=== PATIENT | male | born 1940 | race Caucasian/White ===

== ENCOUNTER → 2023-04-06 10:40 | Outpatient (BNVA) | payer MEDICARE, BC, SELFPAY | PROVIDERS: Visit Provider Nurse Practitioner Gerontology | DX: N41.9 Inflammatory disease of prostate, unspecified (principal); I10 Essential (primary) hypertension | CPT/HCPCS: 99203 ==

== ENCOUNTER → 2023-09-28 09:02 | Outpatient (BNVA) | payer MEDICARE, BC, SELFPAY | PROVIDERS: PCP Family Medicine; Referring Provider Family Medicine; Visit Provider Physician Assistant Surgical | DX: R05.9 Cough, unspecified (principal); R06.2 Wheezing; G47.33 Obstructive sleep apnea (adult) (pediatric); K21.9 Gastro-esophageal reflux disease without esophagitis | CPT/HCPCS: 99215 ==

== ENCOUNTER 2023-10-03 02:59 | Outpatient (CLI) | payer MEDICARE, BC, SELFPAY ==
--- OUTSIDE RECORDS SUMMARY | 2023-10-03 03:01 | XMS_ITS | Patient Health Record ---
Author Name Unknown Organization [facility] Address [address], [place] [id number] Care Team Providers Care Resident Assistant Cna Name Role Phone Sydney Minal Primary Care Provider [phone] Porfirio Aguilar ALLERGIES Allergen (clinical drug ingredient) Drug/Non Drug Allergy documented on EMR Reaction Allergy Type Onset Date Status Ciprofloxacin GI Upset Drug Allergy Act nel meloxicam Meloxicam Nausea and Vomiting Drug Allergy Active oxycodone Oxycodone HCl Nausea and Vomiting Drug Allergy Active penicillin V Penicillin V Potassium Anaphylaxis Drug Allergy Active PredniSONE Mood change Drug Allergy Acti ve escitalopram Escitalopram worsened mood, sexual dysfunction Drug Allergy Active RESULTS Component Value Reference Range Notes BNP BETA NATRIURETIC PEPTIDE Reviewed date:09/25/2023 01:29:29 PM Interpretation: Performing Lab:NL1, [facility]200 [facility] Praveen Estevez M.D. Notes/Report: Received Date: [id number] NON-FASTING B TYPE NATRIURETIC PEPTIDE (BNP) 424 <100 pg/mL BNP levels increase with age in the general population with the highest values seen in individuals greater than 75 years of age. Reference: J. Am. Hakeem. Cardiol. 2002; 40:976-982. NUCLEAR MED Stress Mibi Reviewed date:05/24/2023 07:06:11 AM Interpretation: Performing Lab: Notes/Report: Result: CBC WITH DIFF Reviewed date:04/06/2023 05:16:43 PM Interpretation: Performing Lab:NL1, [facility] [id number] [facility] Praveen Estevez M.D. Notes/Report: Received Date: FASTING: UNKNOWN WHITE BLOOD CELL COUNT 5.1 3.8-10.8 Thousand/ uL RED BLOOD CELL COUNT 4.18 4.20-5.80 Million/uL HEMOGLOBIN 12.0 13.2-17.1 g/dL HEMATOCRIT 36.5 38.5-50.0 % MCV 87.3 80.0-100.0 fL MCH 28.7 27.0-33.0 pg MCHC 32.9 32.0-36.0 g/dL RDW 13.6 11.0-15.0 % PLATELET COUNT 250 140-400 Thousand/uL MPV 10.9 7.5-12.5 fL ABSOLUTE NEUTROPHILS 3024 [phone] cells/uL ABSOLUTE LYMPHOCYTES [phone] cells/uL ABSOLUTE MONOCYTES 449 200-950 cells/uL ABSOLUTE EOSINOPHILS 117 15-500 cells/uL ABSOLUTE BASOPHILS 51 0-200 cells/uL NEUTROPHILS 59.3 LYMPHOCYTES 28.6 MONOCYTES 8.8 EOSINOPHILS 2.3 BASOPHILS 1.0 TSH WITH REFLEX Reviewed date:04/06/2023 05:16:43 PM Interpretation: Performing Lab:NL1, [address] [place], [place] [id number] Praveen Estevez M.D. Notes/Report: Received Date: FASTING: UNKNOWN TSH W/REFLEX TO FT4 2.16 0.40-4.50 mIU/L CMP Reviewed date:04/06/2023 05:16:43 PM Interpretation: Performing Lab:NL1, [address] [place], [place] [id number] Praveen Estevez M.D. Notes/Report: Received Date: FASTING: UNKNOWN GLUCOSE 98 65-99 mg/dL Fasting reference interval UREA NITROGEN (BUN) 18 7-25 mg/dL CREATININE 0.96 0.70-1.22 mg/dL EGFR 80 > OR = 60 mL/min/1.73m2 BUN/CREATININE RATIO SEE NOTE: 6-22 (calc) Not Reported: BUN and Creatinine are within reference range. SODIUM 135 135-146 mmol/L POTASSIUM 4.5 3.5-5.3 mmol/L CHLORIDE 103 98-110 mmol/L CARBON DIOXIDE 24 20-32 mmol/L CALCIUM 9.2 8.6-10.3 mg/dL PROTEIN, TOTAL 6.9 6.1-8.1 g/dL ALBUMIN 4.4 3.6-5.1 g/dL GLOBULIN 2.5 1.9-3.7 g/dL (calc) ALBUMIN/GLOBULIN RATIO 1.8 1.0-2.5 (calc) BILIRUBIN, TOTAL 0.7 0.2-1.2 mg/dL ALKALINE PHOSPHATASE 61 35-144 U/L AST 24 10-35 U/L ALT 22 9-46 U/L URINE CULTURE ROUTINE Reviewed date:11/14/2022 12:58:48 PM Interpretation: Performing Lab:DANELLE, [facility], [address] [place] [address], [id number] Praveen Estevez M.D. Notes/Report: Received Date: FASTING: UNKNOWN CULTURE, URINE, ROUTINE SEE NOTE CULTURE, URINE, ROUTINE Micro Number: [id number] Test Status: Final Specimen Source: Urine Specimen Quality: Adequate Result: Less than 10,000 CFU/mL of single Gram negative organism isolated. No further testing will be performed. If clinically indicated, recollection using a method to minimize contamination, with prompt transfer to Urine Culture Transport Tube, is recommended. URINE DIP IH Reviewed date:11/09/2022 11:23:41 AM Interpretation: Performing Lab: Notes/Report: Microscopic Examination Urine-Color yellow Appearance clear Specific Callender 1.010 pH 7.0 Glucose negative Protein trace Occult Blood negative Bilirubin negative Urobilinogen,Semi-Qn negative Nitrite, Urine negative Ketones negatives Leukocyte esterase negative HCG Urinalysis Gross Exam PSA FREE AND TOTAL Reviewed date:05/25/2023 01:58:00 PM Interpretation: Performing Lab:DANELLE [address] [place], [place] [id number] Praveen Estevez M.D. Notes/Report: Received Date: [id number] NON-FASTING PSA, TOTAL 0.5 < OR = 4.0 ng/mL PSA, FREE 0.2 PSA, % FREE 40 >25 % (calc) PSA(ng/mL) Free PSA(%) Estimated(x) Probability of Cancer(as%) 0-2.5 (*) Approx. 1 2.6-4.0(1) 0-27(2) 24(3) 4.1-10(4) 0-10 56 11-15 28 16-20 20 21-25 16 >or =26 8 >10(+) N/A >50 References:(1)Jareht et al.:Urology 60: 469-474 (2001) (2)Jareth et al.:J.Urol 168: 922-925 (2001) Free PSA(%) Sensitivity(%) Specificity(%) < or = 25 85 19 < or = 30 93 9 (3)Catalona et al.:JEANNETTE 277: 6125-0383 (1996) (4)Catalona et al.:JEANNETTE 279: 0224-3223 (1997) (x)These estimates vary with age, ethnicity, family history and AMIRA results. (*)The diagnostic usefulness of % Free PSA has not been established in patients with total PSA below 2.6 ng/mL (+)In men with PSA above 10 ng/mL, prostate cancer risk is determined by total PSA alone. The Total PSA value from this assay system is standardized against the equimolar PSA standard. The test result will be approximately 20% higher when compared to the WHO-standardized Total PSA (Siemens assay). Comparison of serial PSA results should be interpreted with this fact in mind. PSA was performed using the Jasmyne Clay Immunoassay method. Values obtained from different assay methods cannot be used interchangeably. PSA levels, regardless of value, should not be interpreted as absolute evidence of the presence or absence of disease. REASON FOR REFERRAL Reason FAXED TO [facility] 3.8.20 23 [place] penile pain Please contact our office within [address] [facility] of scheduled appointment Diagnosis 1 Penile pain (N48.89) Referral Organization [facility] David Morales Referring Provider First Name Minal Referring Provider Last Name Sydney Referring Provider Speciality Family Med rufino Referred Provider Osmani Lindo Referred Provider Specialty Urology General Notes Urvashi Thomas 11/09 12:40:30 PM >FAXED TO [facility]. Referral Priority Routine Referral Appointment Date 04/06/2023 Reason FAXED TO [facility] 1.9.20 24 AR evaluate and treat cough, wheeze, SOB. See 09/11/2023 office note Please contact our office within [address] [facility] of scheduled appointment Diagnosis 1 Chronic cough (R05.3 ) Referral Organization [facility] Kenvir Referring Provider First Name Chelsea Referring Provider Last Name Sydney Referring Provider [facility] rufino Referred Provider [facility] Pulmonary, Clin ic Referred Provider Specialty Pulmonary Di seases General Notes Urvashi Thomas 09/12 01:56:24 PM >FAXED TO [facility]. Referral Priority Routine Reason FAXED TO [facility] 1.9.20 24 AR eval and treat Please contact our office within [address] [facility] of scheduled appointment Diagnosis 1 Choking, initial enc ounter (T17.308A) Referral Organization [facility] Referring Provider First Name Chelsea Referring Provider Last Name Sydney Referring Provider [facility] rufino Referred Provider [facility], Specialty Clin ic Referred Provider Specialty Other Medica l Care General Notes Jen Petersen RN 09/11/2023 01:35:29 PM >Please fax to [facility] Speech-Language clinic. Please include today's OV note, Urvashi Thomas 09/12/2023 01:55:27 PM >FAXED TO [facility]. Referral Priority Routine MEDICATIONS Medication SIG (Take, Route, Frequency, Duration) Notes Start Date End Date Status Escitalopram Oxalate 10 MG 1 tablet Orally Once a day for 90 days Not-Taking Olopatadine HCl 0.2 % 1 drop into affect ed eye Ophthalmic Once a day, prn for 30 days 02/02/2023 Not-Taking Benzonatate 100 MG 1 capsule as needed Orally Three times a day for 7 days 07/26/2023 Not-Taking Atorvastatin Calcium 40 MG TAKE ONE TABLET BY MOUTH ONCE DAILY for 90 Active Lisinopril 5 MG TAKE 1 TABLET BY ONUR TH ONE TIME DAILY Orally Once a day for 90 days Active buPROPion HCl ER (SR) 150 MG 1 tablet Orally Twice a day for 90 days Active Triamcinolone Acetonide 0.1 % 1 application Externally Twice a day prn for 30 days 09/07/2022 Active Cialis 10 MG 1 to 2 tablet as nee ded Orally Once a day for 30 days 09/20/2023 Active Nitrostat 0.4 MG as directed Sublingu al prn for 90 days Active Aspirin Adult Low Dose 81 MG 1 tablet Orally Once a day Active Albuterol Sulfate HFA 108 (90 Base) MCG/ACT 2 puff as needed Inhalation every 6 hrs for 30 days 07/06/2023 Active Pantoprazole Sodium 40 MG 1 tablet Orall y Once a day for 30 days 09/11/2023 Active IMMUNIZATIONS Vaccine Route Administration Date Status Comme nts COVID-19 Moderna 35522 Unknown 10/08/2020 Administered Moderna Lot #[id number] exp 08/2021 COVID-19 Moderna 92926 Unknown 11/04/2020 Administered COVID-19 Moderna 72689 IM Intramuscular 06/26/2021 Administered COVID-19 Moderna BIVALENT Age 18 and Older Unknown 05/10/2022 Administered COVID-19 Pfizer IM Intramuscular 12/02/2021 Administered COVID-19 Pfizer BIVALENT Age 12 and older IM Intramuscular 01/06/2023 Administered COVID-19 Pfizer COMIRNATY Age 19 to 64 STATE Supplied IM Intramuscular 05/29/2023 Administered INFLUENZA 18 YRS TO 64 YRS OLD-STATE SUPPLIED Unknown 06/08/2015 Administered INFLUENZA 18 YRS TO 64 YRS OLD-STATE SUPPLIED Unknown 05/06/2016 Administered INFLUENZA 18 YRS TO 64 YRS OLD-STATE SUPPLIED Unknown 05/16/2017 Administered Influenza Adult 65 and Older Fluzone High Dose Purchased IM Intramuscular 05/22/2023 Administered Influenza Adult FluBlok high dose PURCHASED IM Intramuscular 06/01/2020 Administered Influenza Adult FluBlok high dose PURCHASED IM Intramuscular 06/09/2021 Administered Influenza Adult FluBlok high dose PURCHASED IM Intramuscular 05/12/[address] [facility] [id number] Unknown 08/05/2013 Administered Prevnar PCV 13 Adult 65+ Purchased 22917 Unknown 10/15/[address] [facility] 32653 Unknown 06/05/[address] [facility] 12424 Unknown 04/13/[address] [facility] 30060 Unknown 09/05/[address] [facility] 78485 IM Intramuscular 05/22/[address] [facility] 08601 Unknown 04/27/2010 Administered SOCIAL HISTORY Tobacco Use: Social History Observation Description Date Details (start date - stop date) Former Smoker NA - NA Sex Assigned At : Social History Observation Description Sex Assigned At Male OTHER TOBACCO USE: Question Answer Notes Are you an other tobacco user? No SMOKING STATUS: Question Answer Notes Are you a: Former smoker PRAPARE Question Answer Notes Date Completed/Updated: 09/09/21 What is your current housing situation? I have h ousing Are you worried about losing your housing? No What is the highest level of school that you have finished? More than high school What is your current work situation? Oth erwise unemployed but not seeking work (ex. 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 Check all that apply I do not have problems meeting my needs Has lack of transportation k ept you from medical appointments, meetings, work or from getting things needed for daily living? No How often do you see or talk to people that you care about and feel close to? (For example: talking to friends on the phone, visiting friends or family, going to gnosticism or club meetings) More than 5 times a week How stressed are you? Stress is when someone feels tense, nervous, anxious, or can't sleep at night because their mind is troubled A little bit In the past year have you sp ent more than 2 nights in a row in a long-term, custodial, halfway center, or juvenile correctional facility? No Are you a refugee? No What country are you from? [place] Do you feel physically and e motionally safe where you currently live? Yes In the past year, have you b een afraid of your partner or ex-partner? No PRAPARE Score: 3 PROBLEMS Problem Type ICD Code Onset Dates Problem Status W/U Status Risk SNOMED Code Notes Problem Chronic prostatitis (N41.1) Active confirmed 23880077 Problem Depression (F32.9) Active confirmed Depression (144643353) Problem Essential hypertension (I10) Active confirmed 51304742 Problem Obstructive sleep apnea (G47.33) Active confirmed Obstructive s leep apnea (30958205) Problem Osteoarthritis (M19.90) Active confirmed Osteoarthritis (863649766) Problem Psoriasis (L40.9) Active confirmed Psor iasis (5800020) Problem Erectile dysfunction, unspecified erectile dysfunction type (N52.9) Active confirmed 420728238 Problem Hyperlipidemia, unspecified hyperlipidemia type (E78.5) Active confirmed 92092918 Problem Coronary artery disease involving [place] heart, angina presence unspecified, unspecified vessel or lesion type (I25.10) Active confirmed 77434498 Problem H/O acute myocardial infarction (I25.2) Active confirmed 191147925 VITAL SIGNS Heart Rate 67 BPM 09/20/2023 Temperature 97.9 degrees Fahrenheit 09/20/2023 Respiratory Rate 16 /min 07/06/2023 Blood pressure diastolic 78 mmHg 09/20/2023 Oximetry 96 % 09/20/2023 Height 72.5 in 09/20/2023 Blood pressure systolic 128 mmHg 09/20/2023 Weight 232.2 lbs 09/20/2023 BMI 31.06 kg/m2 09/20/2023 PROCEDURES Procedure Date Ordered Date Performed Result Body Sit e PEAK FLOW IH 04/03/2023 04/03/2023 N/A SPIROMETRY 07/06/2023 07/06/2023 N/A GET UP AND GO TEST 05/17/2023 05/17/2023 Passed Encounters Encounter Location Date Provider Diagnosis [address] [id number] 05/15/2023 Minal Grimes [address] [id number] 09/28/2023 Porfirio Aguilar [address] [id number] 11/09/2022 Minal Grimes Penile pain N48.[address] [id number] 12/08/2022 Chelseajarocho Grimes Muscle spasm M62.838 and Upper back pain on left side M54.[address] [id number] 01/06/2023 Chelsea Sydney [address] [id number] 02/02/2023 Chelseajarocho Husseinn Itchy eyes R68.[address] [id number] 04/03/2023 Minal Grimes Coronary artery disease involving [place] heart, angina presence unspecified, unspecified vessel or lesion type I25.10 ; SOB (shortness of breath) R06.02 ; Fatigue, unspecified type R53.83 and Depression F32.[address] [id number] 05/17/2023 Minal Grimes Annual physical exam Z00.00 ; Dietary counseling Z71.3 ; Chronic prostatitis N41.1 ; Hyperlipidemia, unspecified hyperlipidemia type E78.5 ; Coronary artery disease involving [place] heart, angina presence unspecified, unspecified vessel or lesion type I25.10 ; Essential hypertension I10 ; Depression F32.9 and Encounter for immunization Z23 [address] [id number] 07/06/2023 Minal Grimes SK (seborrheic keratosis) L82.1 ; Depression F32.9 and Wheezing R06.[address], [place] [id number] 07/26/2023 Chelseajarocho Husseinn Wheezing R06.2 and Viral URI with cough J06.[address], [place] [id number] 09/11/2023 Minal Grimes Choking, initial encounter T17.308A ; Chronic cough R05.3 and Wheeze R06.[address], [place] [id number] 09/20/2023 Minal Grimes Erectile dysfunction , unspecified erectile dysfunction type N52.9 and Coronary artery disease involving [place] heart, angina presence unspecified, unspecified vessel or lesion type I25.[address], [place] [id number] 10/02/2023 Chelsea Sydney [address], [place] [id number] 11/10/2022 Chelsea Sydney [address], [place] [id number] 11/11/2022 Chelsea Sydney [address], [place] [id number] 02/02/2023 Chelsea Sydney [address], [place] [id number] 04/11/2023 Chelsea Sydney [address], [place] [id number] 07/07/2023 Chelsea Sydney [address], [place] [id number] 07/19/2023 Chelsea Sydney [facility] [address] [facility], [place] [id number] 08/09/2023 Chelsea Sydney Wheezing R06.[address], [place] [id number] 09/01/2023 Chelsea Sydney [facility] [address] [facility], [place] [id number] 09/05/2023 [facility]OS[facility] [address] [facility], [place] [id number] 09/06/2023 Minal Sydney ER Visit ER [facility] [address] [facility], [place] [id number] 09/12/2023 Minal Grimes [facility] [address] [facility], [place] [id number] 09/20[facility]23 [facility] [address] [facility], [place] [id number] 09/22[facility]2023 [facility] [address] [facility], [place] [id number] 10/02/[facility] [address] [facility], [place] [id number] 05/29/2023 Chelsea Sydney [facility] [address] [facility], [place] [id number] 06/19/2023 Minal Grimes [facility] [address] [facility], [place] [id number] 09/28/2023 Minal Grimes ASSESSMENTS Encounter Date Diagnosis Assessment Notes Treatment Notes Treatment Clinical Notes 05/17/2023 Annual physical exam (ICD-10 - Z00.00) 05/17/2023 Dietary counseling (ICD-10 - Z71.3) 04/03/2023 Coronary artery disease involving [place] heart, angina presence unspecified, unspecified vessel or lesion type (ICD-10 - I25.10) 02/02/2023 Itchy eyes (ICD-10 - R68.89) 12/08/2022 Muscle spasm (ICD-10 - M62.838) 12/08/2022 Upper back pain on left side (ICD-10 - M54.9) 11/09/2022 Penile pain (ICD-10 - N48.89) 04/03/2023 SOB (shortness of breath) (ICD-10 - R06.02) 09/11/2023 Choking, initial encounter (ICD-10 - T17.308A) 09/11/2023 Chronic cough (ICD-10 - R05.3) 09/06/2023 ER Visit (ICD9-CM - ER) 09/05/2023 Hospital Admit (ICD9-CM - HOSP) 08/09/2023 Wheezing (ICD-10 - R06.2) 07/26/2023 Wheezing (ICD-10 - R06.2) 07/26/2023 Viral URI with cough (ICD-10 - J06.9) 07/06/2023 Depression (ICD-10 - F32.9) 07/06/2023 SK (seborrheic keratosis) (ICD-10 - L82.1) 09/20/2023 Erectile dysfunction, unspecified erectile dysfunction type (ICD-10 - N52.9) 09/20/2023 Coronary artery disease involving [place] heart, angina presence unspecified, unspecified vessel or lesion type (ICD-10 - I25.10) 09/11/2023 Wheeze (ICD-10 - R06.2) 07/06/2023 Wheezing (ICD-10 - R06.2) 04/03/2023 Fatigue, unspecified type (ICD-10 - R53.83) 05/17/2023 Chronic prostatitis (ICD-10 - N41.1) Venipuncture with 23g from L AC on 1st attempt. Patient tolerated procedure well. Pressure bandage applied. LUPE Delgadillo 05/17/2023 Hyperlipidemia, unspecified hyperlipidemia type (ICD-10 - E78.5) 04/03/2023 Depression (ICD-10 - F32.9) 05/17/2023 Coronary artery disease involving [place] heart, angina presence unspecified, unspecified vessel or lesion type (ICD-10 - I25.10) 05/17/2023 Essential hypertension (ICD-10 - I10) 05/17/2023 Depression (ICD-10 - F32.9) 05/17/2023 Encounter for immunization (ICD-10 - Z23) 11/09/[address] Grimes by Janina Grove, biomedical electronics technician, on 11/09/2022. I, Dr. Grimes, have personally reviewed and agreed with the information entered by the biomedical electronics technician. 12/08/[address] Grimes by Janina Grove, biomedical electronics technician, on 12/08/2022. I, Dr. Grimes, have personally reviewed and agreed with the information entered by the biomedical electronics technician. 02/02/[address] Grimes by Janina Grove biomedical electronics technician, on 02/02/2023. I, Dr. Grimes, have personally reviewed and agreed with the information entered by the biomedical electronics technician. 04/03/[address] Grimes by Janina Grove biomedical electronics technician, on 04/03/2023. IDr. Grimes, have personally reviewed and agreed with the information entered by the biomedical electronics technician. Right hand venipuncture done with 23 g needle. Successful first attempt. Pt tolerated it well.Bandaid applied Lab sent to [facility]. LUPE Funez 05/17/[address] Grimes by Janina Grove biomedical electronics technician, on 05/17/2023. I, Dr. Grimes, have personally reviewed and agreed by the information entered by the biomedical electronics technician. 07/06/[address] Grimes by Janina Grove biomedical electronics technician, on 07/06/2023. I, Dr. Grimes, have personally reviewed and agreed with the information entered by the biomedical electronics technician. 07/26/[address] Grimes by Janina Grove biomedical electronics technician, on 07/26/2023. I, Dr. Grimes, have personally reviewed and agreed with the information entered by the biomedical electronics technician. 09/11/[address] Alex Grimes by Janina Grove biomedical electronics technician, on 09/11/2023. I, Dr. Grimes, have personally reviewed and agreed with the information entered by the biomedical electronics technician. 09/20/2023 Other Scribed for Minal Grimes by Maya Case Virtual scribe on 09/20/2023. Minal Joyce, have personally reviewed and agreed with the information entered by the Virtual scribe. Left ac venipuncture done with 23 g needle. Successful first attempt. Pt tolerated it well. Lab sent to [facility]. LUPE Funez PLAN OF TREATMENT No Information Insurance Providers Payer Name Payer Address Payer Phone Subscriber Number Group Number Insured Name Patient Relationship to Insured Coverage Start Date Coverage End Date MEDICARE FQHC [address] [place] [phone] [id number] Sara Arnold Self - patient is the insured [employer] [place] OUT OF AREA [address] [place] [address] [id number] Sara Arnold Self - patient is the insured 0 MEDICAL (GENERAL) HISTORY Medical History History ICD Code Osteoarthritis bilateral knees and spine Hx of NSTEMI- RCA stent placed, Cardiolo gist Dr. Zamora @ [facility] h/o Aortic aneurysm, resolved per patien t ED h/o chronic Prostatitis Former smoker, quit age 61 h/o Genital HSV Psoriasis h/o Iron deficiency anemia Obstructive Sleep apnea- uses CPAP Depression HTN HLD Nuclear stress test 05/18/20 23: large inferior scar, EF 47%, unchanged since 2019, no abnormal perfusion spirometry on 07/06/2023 norm al but positive response to albuterol. Using albuterol prn with no definite pulmonary diagnosis. Surgical History Surgery Date(Month/Year) APD- Right Total Knee Replacement Dr Elkin forbes 11/29/17 Right Cataract 12/01/11 Right Medial buttock lipoma excision Dr Hoffman 10/2006 STEMI- RCA Stent 04/26/16 Left Cataract 2014 left and right carpal tunnel release 201 9 revision of carpal tunnel 02/2020 Hospitalization History Reason Date(Month/Year) ehrlichiosis 11/2017 For surgeries above
[2023-10-03] MEDS: Levalbuterol HFA 15 GM INH 4 PUFF IH (11:27)
[2023-10-03] MEDS: Inhaler, Assist Device 1 EACH MC (11:28)
--- NOTE | 2023-10-03 12:42 | W.PFT ---
Date of service: 10/03/23 Time of Service: 10:01 Pulmonary Function Test Result Indications: Dyspnea Interpretation Spirometry: There is no airflow limitation. No bronchodilator response. 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 Clinical Correlation therefore is recommended.
== END 2023-10-03 03:00 | disposition home or self-care (01) ==
LOC: RT 02:59
PROVIDERS: PCP Family Medicine; Visit Provider Physician Assistant Surgical
DX: R05.9 Cough, unspecified (principal); J84.9 Interstitial pulmonary disease, unspecified
CPT/HCPCS: 94060; 94726; 94729

== ENCOUNTER → 2023-10-06 01:15 | Outpatient (CLI) | payer MEDICARE, BC, SELFPAY ==
--- OUTSIDE RECORDS SUMMARY | 2023-10-06 01:17 | XMS_ITS | Patient Health Record ---
Author Name Unknown Organization [facility] Address [address], [place] [id number] Care Team Providers Care Sales Representative [employer] Name Role Phone Sydney Minal Primary Care Provider Porfirio Aguilar [phone] ALLERGIES Allergen (clinical drug ingredient) Drug/Non Drug [...] Reviewed date:09/25/2023 01:29:29 PM Interpretation: Performing Lab:NL1, [facility] [place], [place] [id number] Praveen Estevez M.D. Notes/Report: Received Date: [id number] NON-FASTING B TYPE NATRIURETIC PEPTIDE (BNP) 424 <100 pg/mL BNP levels increase with age in the general population with the highest values seen in individuals greater than 75 years of age. Reference: J. Am. Hakeem. Cardiol. 2002; 40:976-982. PSA FREE AND TOTAL Reviewed date:05/25/2023 01:58:00 PM Interpretation: Performing Lab:NL1, [facility] [phone] Praveen Estevez M.D. Notes/Report: Received Date: [id number] NON-FASTING PSA, TOTAL 0.5 < OR = 4.0 ng/mL PSA, FREE 0.2 PSA, % FREE 40 >25 % (calc) PSA(ng/mL) Free PSA(%) Estimated(x) Probability of Cancer(as%) 0-2.5 (*) Approx. 1 2.6-4.0(1) 0-27(2) 24(3) 4.1-10(4) 0-10 56 11-15 28 16-20 20 21-25 16 >or =26 8 >10(+) N/A >50 References:(1)Jareth et al.:Urology 60: 469-474 (2001) (2)Jareth et al.:J.Urol 168: 922-925 (2001) Free PSA(%) Sensitivity(%) Specificity(%) < or = 25 85 19 < or = 30 93 9 (3)Catalona et al.:JEANNETTE 277: 3842-3425 (1996) (4)Catalona et al.:JEANNETTE 279: 5311-1790 (1997) (x)These estimates vary with age, ethnicity, [...] of the presence or absence of disease. NUCLEAR MED Stress Mibi Reviewed date:05/24/2023 07:06:11 AM Interpretation: Performing Lab: Notes/Report: Result: CBC WITH DIFF Reviewed date:04/06/2023 05:16:43 PM Interpretation: Performing Lab:NL1, [facility] [id number] [place], [place] [id number] Praveen Estevez M.D. Notes/Report: Received Date: FASTING: UNKNOWN WHITE BLOOD CELL COUNT 5.1 3.8-10.8 Thousand/ uL RED BLOOD CELL COUNT 4.18 4.20-5.80 Million/uL HEMOGLOBIN 12.0 13.2-17.1 g/dL HEMATOCRIT 36.5 38.5-50.0 % MCV 87.3 80.0-100.0 fL MCH 28.7 27.0-33.0 pg MCHC 32.9 32.0-36.0 g/dL RDW 13.6 11.0-15.0 % PLATELET COUNT 250 140-400 Thousand/uL MPV 10.9 7.5-12.5 fL ABSOLUTE NEUTROPHILS 3024 2324-4728 cells/uL ABSOLUTE LYMPHOCYTES 1569 239-3162 cells/uL ABSOLUTE MONOCYTES 449 200-950 cells/uL ABSOLUTE EOSINOPHILS 117 15-500 cells/uL ABSOLUTE BASOPHILS 51 0-200 cells/uL NEUTROPHILS 59.3 LYMPHOCYTES 28.6 MONOCYTES 8.8 EOSINOPHILS 2.3 BASOPHILS 1.0 TSH WITH REFLEX Reviewed date:04/06/2023 05:16:43 PM Interpretation: Performing Lab:NL1, [facility] [place], [place] [id number] Praveen Estevez M.D. Notes/Report: Received Date: FASTING: UNKNOWN TSH W/REFLEX TO FT4 2.16 0.40-4.50 mIU/L CMP Reviewed date:04/06/2023 05:16:43 PM Interpretation: Performing Lab:[facility] [address] Praveen Estevez M.D. Notes/Report: Received Date: FASTING: [...] ROUTINE Reviewed date:11/14/2022 12:58:48 PM Interpretation: Performing Lab:NL1, [facility], [address] [place] [address], [phone] Praveen Estevez M.D. Notes/Report: Received Date: FASTING: UNKNOWN CULTURE, URINE, ROUTINE SEE NOTE CULTURE, URINE, ROUTINE Micro Number: [id number] Test Status: Final Specimen Source: Urine Specimen [...] Microscopic Examination Urine-Color yellow Appearance clear Specific [place] 1.010 pH 7.0 Glucose negative Protein trace Occult Blood negative Bilirubin negative Urobilinogen,Semi-Qn negative Nitrite, Urine negative Ketones negatives Leukocyte esterase negative HCG Urinalysis Gross Exam REASON FOR REFERRAL Reason FAXED TO [facility] 3.8.20 23 AR penile pain Please contact our office within [address] to [address] [facility] of scheduled appointment Diagnosis 1 Penile pain (N48.89) Referral Organization [facility] David Morales Referring Provider First Name Minal Referring Provider Last Name Sydney Referring Provider Speciality Family Med rufino Referred Provider Osmani Lindo Referred Provider Specialty Urology General Notes Urvashi Thomas 11/09 12:40:30 PM >FAXED TO [facility]. Referral Priority Routine Referral Appointment Date 04/06/2023 Reason FAXED TO [facility] 1.9.20 24 AR evaluate and treat cough, wheeze, SOB. See 09/11/2023 office note Please contact our office within [address] [facility] of scheduled appointment Diagnosis 1 Chronic cough (R05.3 ) Referral Organization [facility] Referring Provider First Name [place] Referring Provider Last Name [facility] Referring Provider [facility] Referred Provider [facility] Pulmonary, Clin ic Referred Provider Specialty Pulmonary Meeta moratayaes General Notes Urvashi Thomas 09/12 01:56:24 PM >FAXED TO [facility]. Referral Priority Routine Reason FAXED TO [facility] 19 AR eval and treat Please contact our office within 7 days to notify [facility] of scheduled appointment Diagnosis 1 Choking, initial enc ounter (T17.308A) Referral Organization [facility] Referring Provider First Name [place] Referring Provider Last Name [facility] Referring Provider [facility] Referred Provider [facility], Specialty Clin ic Referred Provider Specialty Other Medica l [facility] General Notes Nicola ANDRADE, Jen 09/11/2023 01:35:29 PM >Please fax to [facility] Speech-Language clinic. Please include today's OV note, Urvashi Thomas 09/12/2023 01:55:27 PM >FAXED TO [facility]. Referral Priority Routine Reason *10/04/23 LP. eval a nd treat Please contact our office within [address] [facility] of scheduled appointment Diagnosis 1 Coronary artery dise ase involving [place] heart, angina presence unspecified, unspecified vessel or lesion type (I25.10) Diagnosis 2 H/O acute myocardial infarction (I25.2) Diagnosis 3 Essential hypertensi on (I10) Referral Organization [facility] Referring Provider First Name [place] Referring Provider Last Name Sydney Referring Provider [facility] Referred Provider [facility], Cardiology Referred Provider Specialty Cardiology Referral Priority Routine MEDICATIONS Medication SIG (Take, Route, Frequency, Duration) Notes Start Date End Date Status Nitrostat 0.4 MG as directed Sublingu al prn for 90 days Active Triamcinolone Acetonide 0.1 % 1 application Externally Twice a day prn for 30 days 09/07/2022 Active buPROPion HCl ER (SR) 150 MG 1 tablet Orally Twice a day for 90 days Active Lisinopril 5 MG TAKE 1 TABLET BY ONUR TH ONE TIME DAILY Orally Once a day for 90 days Active Atorvastatin Calcium 40 MG TAKE ONE TABLET BY MOUTH ONCE DAILY for 90 Active Cialis 10 MG 1 to 2 tablet as nee ded Orally Once a day for 30 days 09/20/2023 Active Benzonatate 100 MG 1 capsule as needed Orally Three times a day for 7 days 07/26/2023 Not-Taking Pantoprazole Sodium 40 MG 1 tablet Orall y Twice a day for 30 days 09/11/2023 Active Olopatadine HCl 0.2 % 1 drop into affect ed eye Ophthalmic Once a day, prn for 30 days 02/02/2023 Not-Taking Escitalopram Oxalate 10 MG 1 tablet Orally Once a day for 90 days Not-Taking Albuterol Sulfate HFA 108 (90 Base) MCG/ACT 2 puff as needed Inhalation every 6 hrs for 30 days 07/06/2023 Active Aspirin Adult Low Dose 81 MG 1 tablet Orally Once a day Active IMMUNIZATIONS Vaccine Route Administration Date Status Comme nts Zostavax [facility] [id number] Unknown 04/27/[address] [facility] [id number] Unknown 04/13/[address] [facility] [id number] Unknown 09/05/[address] [facility] [id number] IM Intramuscular 05/22/[address] [facility] [id number] Unknown 06/05/2020 Administered Prevnar PCV 13 Adult 65+ Purchased [id number] Unknown 10/15/[address] [facility] [id number] Unknown 08/05/2013 Administered Influenza Adult FluBlok high dose PURCHASED IM Intramuscular 06/01/2020 Administered Influenza Adult FluBlok high dose PURCHASED IM Intramuscular 06/09/2021 Administered Influenza Adult FluBlok high dose PURCHASED IM Intramuscular 05/12/2022 Administered Influenza Adult 65 and Older Fluzone High Dose Purchased IM Intramuscular 05/22/2023 Administered INFLUENZA 18 YRS TO 64 YRS OLD-STATE SUPPLIED Unknown 06/08/2015 Administered INFLUENZA 18 YRS TO 64 YRS OLD-STATE SUPPLIED Unknown 05/06/2016 Administered INFLUENZA 18 YRS TO 64 YRS OLD-STATE SUPPLIED Unknown 05/16/2017 Administered COVID-19 Pfizer COMIRNATY Age 19 to 64 STATE Supplied IM Intramuscular 05/29/2023 Administered COVID-19 Pfizer BIVALENT Age 12 and older IM Intramuscular 01/06/2023 Administered COVID-19 Pfizer IM Intramuscular 12/02/2021 Administered COVID-19 Moderna BIVALENT Age 18 and Older Unknown 05/10/2022 Administered COVID-19 Moderna [id number] Unknown 10/08/2020 Administered Moderna Lot #[id number] exp 08/2021 COVID-19 Moderna [id number] Unknown 11/04/2020 Administered COVID-19 Moderna [id number] IM Intramuscular 06/26/2021 Administered SOCIAL HISTORY Tobacco Use: Social History [...] 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 Stress is when someone feels tense, nervous, anxious, or can't sleep at night because their mind is troubled A little bit In the past year have you sp ent more than 2 nights in a row in a fci, half-way, group home center, or juvenile correctional facility? No Are [...] Notes Problem Chronic prostatitis (N41.1) Active confirmed 81421585 Problem Depression (F32.9) Active confirmed Depression (017677326) Problem Essential hypertension (I10) Active confirmed 69928612 Problem Obstructive sleep apnea (G47.33) Active confirmed Obstructive s leep apnea (97967630) Problem Osteoarthritis (M19.90) Active confirmed Osteoarthritis (906874406) Problem Psoriasis (L40.9) Active confirmed Psor iasis (3292964) Problem Erectile dysfunction, unspecified erectile dysfunction type (N52.9) Active confirmed 615315785 Problem Hyperlipidemia, unspecified hyperlipidemia type (E78.5) Active confirmed 93275323 Problem Coronary artery disease involving [place] heart, angina presence unspecified, unspecified vessel or lesion type (I25.10) Active confirmed 61502882 Problem H/O acute myocardial infarction (I25.2) Active confirmed 001064803 VITAL SIGNS Heart Rate 55 BPM 10/04/2023 Temperature 98.0 degrees Fahrenheit 10/04/2023 Respiratory Rate 16 /min 07/06/2023 Oximetry 99 % 10/04/2023 Blood pressure diastolic 88 mmHg 10/04/2023 Height 72.5 in 10/04/2023 Blood pressure systolic 138 mmHg 10/04/2023 Weight 236.6 lbs 10/04/2023 BMI 31.64 kg/m2 10/04/2023 PROCEDURES Procedure Date Ordered Date Performed Result Body Sit e PEAK FLOW IH 04/03/2023 04/03/2023 N/A SPIROMETRY 07/06/2023 07/06/2023 N/A GET UP AND GO TEST 05/17/2023 05/17/2023 Passed Encounters Encounter Location Date Provider Diagnosis [address] [id number] 05/15/2023 [place] [address] [id number] 09/28/2023 Porfirio Aguilar [address] [id number] 10/04/2023 [place] Grimes SOB (shortness of breath) R06.02 ; Chronic cough R05.3 and Coronary artery disease involving [place] heart, angina presence unspecified, unspecified vessel or lesion type I25.[address] [id number] 11/09/2022 Minal Grimes Penile pain N48.[address] [id number] 12/08/2022 Minal Grimes Muscle spasm M62.838 and Upper back pain on left side M54.[address] [id number] 01/06/2023 [place] [address] [id number] 02/02/2023 Minal Grimes Itchy eyes R68.[address] [id number] 04/03/2023 Minal Grimes Coronary artery disease involving [place] heart, angina presence unspecified, unspecified vessel or lesion type I25.10 ; SOB (shortness of breath) R06.02 ; Fatigue, unspecified type R53.83 and Depression F32.[address] [id number] 05/17/2023 Minal Grimes Annual physical exam Z00.00 ; Dietary counseling Z71.3 ; Chronic prostatitis N41.1 ; Hyperlipidemia, unspecified hyperlipidemia type E78.5 ; Coronary artery disease involving [place] heart, angina presence unspecified, unspecified vessel or lesion type I25.10 ; Essential hypertension I10 ; Depression F32.9 and Encounter for immunization Z23 [address] [id number] 07/06/2023 Minal Grimes SK (seborrheic keratosis) L82.1 ; Depression F32.9 and Wheezing R06.[address] [id number] 07/26/2023 Minal Grimes Wheezing R06.2 and Viral URI with cough J06.[address] [id number] 09/11/2023 Minal Grimes Choking, initial encounter T17.308A ; Chronic cough R05.3 and Wheeze R06.[address] [id number] 09/20/2023 Minal Grimes Erectile dysfunction , unspecified erectile dysfunction type N52.9 and Coronary artery disease involving [place] heart, angina presence unspecified, unspecified vessel or lesion type I25.[address] [id number] 11/10/2022 Minal Grimes [address] [id number] 11/11/2022 Minal Grimes [address] [place], [place] [id number] 02/02/[address] [facility] [place] [address] [facility], [place] [id number] 04/11/[address] [facility] [place] [address] [facility], [place] [id number] 07/07/[address] [facility] [place] [address] [facility], [place] [id number] 07/19/[address] [facility] [place] [address] [facility], [place] [id number] 08/09/2023 Minal Grimes Wheezing R06.2 [facility] [place] [address] [facility], [place] [id number] 09/01/[address] [facility] [place] [address] [facility], [place] [id number] 09/05/2023 [facility] Admit [facility]OSP [facility] [place] [address] [facility], [place] [id number] 09/06/2023 Minal Grimes ER Visit ER [facility] [place] [address] [facility], [place] [id number] 09/12/[address] [facility] [place] [address] [facility], [place] [id number] 09/20/[address] [facility] [place] [address] [facility], [place] [id number] 09/22/[address] [facility] [place] [address] [facility], [place] [id number] 10/02[facility] [place] [id number] 05/29/[address] [facility] [place] [address] [facility], [place] [id number] 06/19/[address] [facility] [place] [address] [facility], [place] [id number] 09/28/2023 [facility] [address] [facility] [place] [id number] 10/02/2023 Minal Grimes Coronary artery disease involving [place] heart, angina presence unspecified, unspecified vessel or lesion type I25.10 ; H/O acute myocardial infarction I25.2 and Essential hypertension I10 ASSESSMENTS Encounter Date Diagnosis Assessment Notes Treatment Notes Treatment Clinical Notes 11/09/2022 Penile pain (ICD-10 - N48.89) 12/08/2022 Muscle spasm (ICD-10 - M62.838) 12/08/2022 Upper back pain on left side (ICD-10 - M54.9) 02/02/2023 Itchy eyes (ICD-10 - R68.89) 04/03/2023 SOB (shortness of breath) (ICD-10 - R06.02) 04/03/2023 Coronary artery disease involving [place] heart, angina presence unspecified, unspecified vessel or lesion type (ICD-10 - I25.10) 05/17/2023 Annual physical exam (ICD-10 - Z00.00) 05/17/2023 Dietary counseling (ICD-10 - Z71.3) 07/06/2023 Depression (ICD-10 - F32.9) 07/06/2023 SK (seborrheic keratosis) (ICD-10 - L82.1) 07/26/2023 Wheezing (ICD-10 - R06.2) 07/26/2023 Viral URI with cough (ICD-10 - J06.9) 08/09/2023 Wheezing (ICD-10 - R06.2) 09/05/2023 Hospital Admit (ICD9-CM - HOSP) 09/06/2023 ER Visit (ICD9-CM - ER) 09/11/2023 Choking, initial encounter (ICD-10 - T17.308A) 09/11/2023 Chronic cough (ICD-10 - R05.3) 09/20/2023 Erectile dysfunction, unspecified erectile dysfunction type (ICD-10 - N52.9) 10/02/2023 Coronary artery disease involving [place] heart, angina presence unspecified, unspecified vessel or lesion type (ICD-10 - I25.10) 10/02/2023 H/O acute myocardial infarction (ICD-10 - I25.2) 10/04/2023 SOB (shortness of breath) (ICD-10 - R06.02) 07/06/2023 Wheezing (ICD-10 - R06.2) 10/04/2023 Chronic cough (ICD-10 - R05.3) 09/20/2023 Coronary artery disease involving [place] heart, angina presence unspecified, unspecified vessel or lesion type (ICD-10 - I25.10) 10/02/2023 Essential hypertension (ICD-10 - I10) 09/11/2023 Wheeze (ICD-10 - R06.2) 05/17/2023 Chronic prostatitis (ICD-10 - N41.1) Venipuncture with 23g from L AC on 1st attempt. Patient tolerated procedure well. Pressure bandage applied. LUPE Delgadillo 04/03/2023 Fatigue, unspecified type (ICD-10 - R53.83) 04/03/2023 Depression (ICD-10 - F32.9) 10/04/2023 Coronary artery disease involving [place] heart, angina presence unspecified, unspecified vessel or lesion type (ICD-10 - I25.10) 05/17/2023 Hyperlipidemia, unspecified hyperlipidemia type (ICD-10 - E78.5) 05/17/2023 Coronary artery disease involving [place] heart, angina presence unspecified, unspecified vessel or lesion type (ICD-10 - I25.10) 05/17/2023 Essential hypertension (ICD-10 - I10) 05/17/2023 Depression (ICD-10 - F32.9) 05/17/2023 Encounter for immunization (ICD-10 - Z23) 10/04/[address] Alex Grimes by Janina Grove, medical transcription editor, on 10/04/2023. I, Dr. Grimes, have personally reviewed and agreed with the information entered by the medical transcription editor. 11/09/[address] Grimes by Janina Grove medical transcription editor, on 11/09/2022. I, Dr. Grimes, have personally reviewed and agreed with the information entered by the medical transcription editor. 12/08/[address] Grimes by Janina Grove medical transcription editor, on 12/08/2022. I, Dr. Grimes, have personally reviewed and agreed with the information entered by the medical transcription editor. 02/02/[address] Grimes by Janina Grove medical transcription editor, on 02/02/2023. I, Dr. Grimes, have personally reviewed and agreed with the information entered by the medical transcription editor. 04/03/[address] Grimes by Janina Maine, medical transcription editor, on 04/03/2023. I, Dr. Grimes, have personally reviewed and agreed with the information entered by the medical transcription editor. Right hand venipuncture done with 23 g needle. Successful first attempt. Pt tolerated it well.Bandaid applied Lab sent to [facility]. LUPE Funez 05/17/[address] Grimes by Janina Grove medical transcription editor, on 05/17/2023. I, Dr. Grimes, have personally reviewed and agreed by the information entered by the medical transcription editor. 07/06/[address] Grimes by Janina Grove medical transcription editor, on 07/06/2023. I, Dr. Grimes, have personally reviewed and agreed with the information entered by the medical transcription editor. 07/26/[address] Grimes by Janina Grove medical transcription editor, on 07/26/2023. I, Dr. Grimes, have personally reviewed and agreed with the information entered by the medical transcription editor. 09/11/[address] Alex Grimes by Janina Grove medical transcription editor, on 09/11/2023. I, Dr. Grimes, have personally reviewed and agreed with the information entered by the medical transcription editor. 09/20/2023 Other Scribed for Minal Grimes by Maya Case Virtual scribe on 09/20/2023. IMinal, have personally reviewed and agreed with the information entered by the Virtual scribe. Left ac venipuncture done with 23 g needle. Successful first attempt. Pt tolerated it well. Lab sent to [facility]. LUPE Funez PLAN OF TREATMENT Next Appt Details Provider Name:Minal Grimes, 0 10/12/2023 03:00:00 PM, [address] [place] [address], [phone], Insurance Providers Payer Name Payer Address Payer Phone Subscriber Number Group Number Insured Name Patient Relationship to Insured Coverage Start Date Coverage End Date MEDICARE FQHC [address] [place] [phone] [id number] Sara Arnold Self - patient is the insured [employer] [place] [employer] [place] [address] [place] [address] [id number] Sara Arnold Self - patient is the insured 0 MEDICAL (GENERAL) HISTORY Medical History History ICD Code Osteoarthritis bilateral knees and spine Hx of NSTEMI- RCA stent placed, Cardiolo gist Dr. Zamora @ [facility] h/o Aortic aneurysm, resolved per patien t [...] albuterol prn with no definite pulmonary diagnosis. 10/03/2023 PFT: mild restric tion, reduced diffusion, no bronchodilator response, plan CT Surgical History Surgery Date(Month/Year) APD- Right Total Knee Replacement Dr Elkin forbes 11/29/17 Right Cataract 12/01/11 Right Medial buttock lipoma excision Dr Hoffman 10/2006 STEMI- RCA Stent 04/26/16 Left Cataract 2014 left and right carpal tunnel release 201 9 revision of carpal tunnel 02/2020 Hospitalization History Reason Date(Month/Year) ehrlichiosis 11/2017 For surgeries above
--- NOTE | 2023-10-06 08:15 | DI.CT_ITS ---
Exam(s) CT CHEST WO EXAM: CT CHEST WO CLINICAL HISTORY: cough,pneumonia,j18.9,r05.9. TECHNIQUE: Imaging protocol: Axial computed tomography images were obtained and coronal and sagittal reformatted images were created and reviewed. COMPARISON: CR XR CHEST, 2 VIEWS from 09/04/2023 FINDINGS: Tracheobronchial tree: Patent where visualized. Pulmonary parenchyma: No consolidation or dominant measurable mass. There is a 4 mm nodule in the rig ht middle lobe (series 3, image 424). Mild centrilobular emphysematous changes are present. There i s a moderate sized right pleural effusion with consolidation seen in the right lower lobe. No infilt rates are seen in the left lung. Mediastinum and Marie: No dominant adenopathy or fluid collection. The esophagus is unremarkable. Thyroid gland: Unremarkable. Pleura: No left pleural effusion. No pneumothorax. Heart: Cardiomegaly. Coronary artery calcification and/or stents. There is motion artifact but ther e may be a very small pericardial effusion. Aorta: Thoracic aorta non-dilated. Atherosclerosis. Upper abdomen: There is a hepatic cyst present. Lymph nodes: Within normal limits. Soft tissues: Unremarkable. Bones:Within normal limits for the patient's age. IMPRESSION: 1. Moderate size right pleural effusion with compressive consolidation in the right lower lobe which may represent atelectasis or pneumonia. 2. 4 mm nodule in the right middle lobe. Solid nodules smaller than 6 mm do not require routine follo w-up in all patients with high clinical risk; however, some nodules smaller than 6 mm with suspicious morphology, upper lobe location, or both may warrant follow-up at 12 months (grade 2A; weak recommen dation, high-quality evidence). (Zack et al., 2017) 3. Cardiomegaly, coronary artery calcifications and/or stents and atherosclerosis. RADIATION DOSE DELIVERED: 729.88mGy.cm Total DLP 729.88mGy.cm Total DLP DATA REPOSITORY: All CT scans at this facility are submitted to the National Radiology Data Registry (NRDR) Dose Index Registry (DIR) with the [employer] (ACR). RADIATION OPTIMIZATION: All CT scans at this facility use at least one of these dose optimization te chniques: automated exposure control; mA and/or kV adjustment per patient size (includes targeted exa ms where dose is matched to clinical indication); or iterative reconstruction.
== END ==
PROVIDERS: PCP Family Medicine; Visit Provider Physician Assistant Surgical
DX: K21.9 Gastro-esophageal reflux disease without esophagitis; R05.9 Cough, unspecified; R91.8 Other nonspecific abnormal finding of lung field
CPT/HCPCS: 71250

== ENCOUNTER → 2023-10-11 01:14 | Outpatient (CLI) | payer MEDICARE, BC, SELFPAY ==
--- OUTSIDE RECORDS SUMMARY | 2023-10-11 01:17 | XMS_ITS | Patient Health Record ---
Author Name Unknown Organization [facility] Address [address], [place] [id number] Care Team Providers Care Fret Saw Operator Name Role Phone Sydney [place] Primary Care Provider [phone] Porfirio Aguilar ALLERGIES Allergen (clinical drug ingredient) [...] Active RESULTS Component Value Reference Range Notes URINE DIP IH Reviewed date:11/09/2022 11:23:41 AM Interpretation: Performing Lab: Notes/Report: Microscopic Examination Urine-Color yellow Appearance clear Specific [place] 1.010 pH 7.0 Glucose negative Protein trace Occult Blood negative Bilirubin negative Urobilinogen,Semi-Qn negative Nitrite, Urine negative Ketones negatives Leukocyte esterase negative HCG Urinalysis Gross Exam URINE CULTURE ROUTINE Reviewed date:11/14/2022 12:58:48 PM Interpretation: Performing Lab:NL1, [facility], [address] [place] [address], [id number] Praveen Estevez M.D. Notes/Report: Received Date: FASTING: UNKNOWN CULTURE, URINE, ROUTINE SEE NOTE CULTURE, URINE, ROUTINE Micro Number: [id number] Test Status: Final Specimen Source: Urine Specimen Quality: Adequate Result: Less than 10,000 CFU/mL of single Gram negative organism isolated. No further testing will be performed. If clinically indicated, recollection using a method to minimize contamination, with prompt transfer to Urine Culture Transport Tube, is recommended. PSA FREE AND TOTAL Reviewed date:05/25/2023 01:58:00 PM Interpretation: Performing Lab:NL1, [facility] [id number] [place], [place] [id number] Praveen Estevez M.D. Notes/Report: Received Date: [id number] NON-FASTING PSA, TOTAL 0.5 < OR = 4.0 ng/mL PSA, FREE 0.2 PSA, % FREE 40 >25 % (calc) PSA(ng/mL) Free PSA(%) Estimated(x) Probability of Cancer(as%) 0-2.5 (*) Approx. 1 2.6-4.0(1) 0-27(2) 24(3) 4.1-10(4) 0-10 56 11-15 28 16-20 20 21-25 16 >or =26 8 >10(+) N/A >50 References:(1)Jareth et al.:Urology 60: 469-474 (2001) (2)Cornellona et al.:J.Urol 168: 922-925 (2001) Free PSA(%) Sensitivity(%) Specificity(%) < or = 25 85 19 < or = 30 93 9 (3)Catalona et al.:JEANNETTE 277: 8022-5131 (1996) (4)Catalona et al.:JEANNETTE 279: 5118-0997 (1997) (x)These estimates vary with age, ethnicity, [...] mind. PSA was performed using the Jasmyne [place] Immunoassay method. Values obtained from different assay methods cannot be used interchangeably. PSA levels, regardless of value, should not be interpreted as absolute evidence of the presence or absence of disease. BNP BETA NATRIURETIC PEPTIDE Reviewed date:09/25/2023 01:29:29 PM Interpretation: Performing Lab:[facility] [id number] Praveen Estevez M.D. Notes/Report: Received Date: [id number] NON-FASTING B TYPE NATRIURETIC PEPTIDE (BNP) 424 <100 pg/mL BNP levels increase with age in the general population with the highest values seen in individuals greater than 75 years of age. Reference: J. Am. Hakeem. Cardiol. 2002; 40:976-982. NUCLEAR MED Stress Mibi Reviewed date:05/24/2023 07:06:11 AM Interpretation: Performing Lab: Notes/Report: Result: CBC WITH DIFF Reviewed date:04/06/2023 05:16:43 PM Interpretation: Performing Lab:[facility] [id number] Praveen Estevez M.D. Notes/Report: Received Date: [id number] FASTING: UNKNOWN WHITE BLOOD CELL COUNT 5.1 3.8-10.8 Thousand/ uL RED BLOOD CELL COUNT 4.18 4.20-5.80 Million/uL HEMOGLOBIN 12.0 13.2-17.1 g/dL HEMATOCRIT 36.5 38.5-50.0 % MCV 87.3 80.0-100.0 fL MCH 28.7 27.0-33.0 pg MCHC 32.9 32.0-36.0 g/dL RDW 13.6 11.0-15.0 % PLATELET COUNT 250 140-400 Thousand/uL MPV 10.9 7.5-12.5 fL ABSOLUTE NEUTROPHILS 3024 2436-3221 cells/uL ABSOLUTE LYMPHOCYTES 4358 855-5292 cells/uL ABSOLUTE MONOCYTES 449 200-950 cells/uL ABSOLUTE EOSINOPHILS 117 15-500 cells/uL ABSOLUTE BASOPHILS 51 0-200 cells/uL NEUTROPHILS 59.3 LYMPHOCYTES 28.6 MONOCYTES 8.8 EOSINOPHILS 2.3 BASOPHILS 1.0 TSH WITH REFLEX Reviewed date:04/06/2023 05:16:43 PM Interpretation: Performing Lab:[facility] [id number] Praveen Estevez M.D. Notes/Report: Received Date: FASTING: UNKNOWN TSH W/REFLEX TO FT4 2.16 0.40-4.50 mIU/L CMP Reviewed date:04/06/2023 05:16:43 PM Interpretation: Performing Lab:NL1, [facility] [id number] [place], [place] [phone] Praveen Estevez M.D. Notes/Report: Received Date: FASTING: [...] 24 10-35 U/L ALT 22 9-46 U/L REASON FOR REFERRAL Reason FAXED TO [facility] 3.8.20 23 AR penile pain Please contact our office within 7 days to notify [facility] of scheduled appointment Diagnosis 1 Penile pain (N48.89) Referral Organization [facility] David Morales Referring Provider First Name [place] Referring Provider Last Name Sydney Referring Provider Speciality Family Med rufino Referred Provider Osmani Lindo Referred Provider Specialty Urology General Notes Urvashi Thomas 11/09 12:40:30 PM >FAXED TO [facility]. Referral Priority Routine Referral Appointment Date 04/06/2023 Reason FAXED TO [facility] 1.9.20 24 AR evaluate and treat cough, wheeze, SOB. See 09/11/2023 office note Please contact our office within 7 days to notify [facility] of scheduled appointment Diagnosis 1 Chronic cough (R05.3 ) Referral Organization [facility] Referring Provider First Name [place] Referring Provider Last Name Sydney Referring Provider [facility] Referred Provider [facility] Pulmonary, Clin ic Referred Provider Specialty Pulmonary [facility] General Notes Urvashi Thomas 09/12 01:56:24 PM >FAXED TO [facility]. Referral Priority Routine Reason FAXED TO [facility] 1.9.20 24 AR eval and treat Please contact our office within 7 days to notify [facility] of scheduled appointment Diagnosis 1 Choking, initial enc ounter (T17.308A) Referral Organization [facility] Referring Provider First Name [place] Referring Provider Last Name Sydney Referring Provider [facility] Referred Provider [facility], Specialty Clin ic Referred Provider Specialty Other Medica l Care General Notes Jen Petersen RN 09/11/2023 01:35:29 PM >Please fax to [facility] Speech-Language clinic. Please include today's OV note, Urvashi Thomas 09/12/2023 01:55:27 PM >FAXED TO [facility]. Referral Priority Routine Reason FAXED TO [facility] CARD 0 10/06/23 LP. eval and treat Please contact our office within 7 days to notify [facility] of scheduled appointment Diagnosis 1 Coronary artery dise ase involving [place] heart, angina presence unspecified, unspecified vessel or lesion type (I25.10) Diagnosis 2 H/O acute myocardial infarction (I25.2) Diagnosis 3 Essential hypertensi on (I10) Referral Organization [facility] Referring Provider First Name [place] Referring Provider Last Name Sydney Referring Provider [facility] Referred Provider [facility], Cardiology Referred Provider Specialty Cardiology General Notes Kori Mo 10/2023 02:42:49 PM >FAXED TO [facility] CARD Referral Priority Routine MEDICATIONS Medication SIG (Take, Route, Frequency, Duration) Notes Start Date End Date Status Nitrostat 0.4 MG as directed Sublingu al prn for 90 days Active buPROPion HCl ER [...] a day for 30 days 09/20/2023 Active Triamcinolone Acetonide 0.1 % 1 application Externally Twice a day prn for 30 days 09/07/2022 Active Benzonatate 100 MG 1 capsule as [...] Once a day for 90 days Not-Taking Furosemide 20 MG 1/2 tablet Orally On ce a day for 40 days 10/09/2023 Active Albuterol Sulfate HFA 108 (90 Base) MCG/ACT 2 puff as needed Inhalation every 6 hrs for 30 days 07/06/2023 Active Aspirin Adult Low Dose 81 MG 1 tablet Orally Once a day Active IMMUNIZATIONS Vaccine Route Administration Date Status Comme nts Zostavax [facility] 28637 Unknown 04/27/2010 Administered TDaP Adult [facility] 85190 Unknown 04/13/2004 Administered TDaP Adult [facility] 07972 Unknown 09/05/2012 Administered TDaP Adult [facility] 59510 IM Intramuscular 05/22/2023 Administered SHINGRIX [facility] 78189 Unknown 06/05/2020 Administered Prevnar PCV 13 Adult 65+ Purchased 74175 Unknown 10/15/2015 Administered Pneumovax [facility] 25299 Unknown 08/05/2013 Administered Influenza Adult FluBlok high [...] YRS OLD-STATE SUPPLIED Unknown 05/16/2017 Administered COVID-19 [employer] COMIRSHRUTHIY Age 19 to 64 STATE Supplied IM Intramuscular 05/29/2023 Administered COVID-19 Pfizer BIVALENT Age 12 and older IM Intramuscular 01/06/2023 Administered COVID-19 Pfizer IM Intramuscular 12/02/2021 Administered COVID-19 Moderna BIVALENT Age 18 and Older Unknown 05/10/2022 Administered COVID-19 Moderna 33959 Unknown 10/08/2020 Administered Moderna Lot #[id number] exp 08/2021 COVID-19 Moderna 14950 Unknown 11/04/2020 Administered COVID-19 Moderna 51763 IM Intramuscular 06/26/2021 Administered SOCIAL HISTORY Tobacco [...] 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 Stress is when someone feels tense, nervous, anxious, or can't sleep at night because their mind is troubled A little bit In the past year have you sp ent more than 2 nights in a row in a correction, halfway, senior care center, or juvenile correctional facility? No Are [...] Notes Problem Chronic prostatitis (N41.1) Active confirmed 84163328 Problem Depression (F32.9) Active confirmed Depression (990482176) Problem Essential hypertension (I10) Active confirmed 54286057 Problem Obstructive sleep apnea (G47.33) Active confirmed Obstructive s leep apnea (35738795) Problem Osteoarthritis (M19.90) Active confirmed Osteoarthritis (590749249) Problem Psoriasis (L40.9) Active confirmed Psor iasis (1589713) Problem Erectile dysfunction, unspecified erectile dysfunction type (N52.9) Active confirmed 953452153 Problem Hyperlipidemia, unspecified hyperlipidemia type (E78.5) Active confirmed 14327997 Problem Coronary artery disease involving [place] heart, angina presence unspecified, unspecified vessel or lesion type (I25.10) Active confirmed 69008982 Problem H/O acute myocardial infarction (I25.2) Active confirmed 353690913 VITAL SIGNS Heart Rate 55 BPM 10/04/2023 [...] Passed Encounters Encounter Location Date Provider Diagnosis [address] [id number] 05/15/2023 [place] Sydney [address] [id number] 09/28/2023 Porfirio Aguilar [address] [id number] 11/09/2022 [place] Penile pain N48.[address] [id number] 12/08/2022 [place] Muscle spasm M62.838 and Upper back pain on left side M54.[address] [id number] 01/06/2023 [place] Sydney [address] [id number] 02/02/2023 Minal Grimes Itchy eyes R68.[address] [id number] 04/03/2023 Minal Grimes Coronary artery disease involving [place] heart, angina presence unspecified, unspecified vessel or lesion type I25.10 ; SOB (shortness of breath) R06.02 ; Fatigue, unspecified type R53.83 and Depression F32.[address] [id number] 05/17/2023 Minal Grimes Annual physical exam Z00.00 ; Dietary counseling Z71.3 ; Chronic prostatitis N41.1 ; Hyperlipidemia, unspecified hyperlipidemia type E78.5 ; Coronary artery disease involving [place] heart, angina presence unspecified, unspecified vessel or lesion type I25.10 ; Essential hypertension I10 ; Depression F32.9 and Encounter for immunization Z23 [address] [id number] 07/06/2023 Minal Grimes SK (seborrheic keratosis) L82.1 ; Depression F32.9 and Wheezing R06.[address] [id number] 07/26/2023 Minal Grimes Wheezing R06.2 and Viral URI with cough J06.[address] [id number] 09/11/2023 Minal Grimes Choking, initial encounter T17.308A ; Chronic cough R05.3 and Wheeze R06.[address] [id number] 09/20/2023 Minal Grimes Erectile dysfunction , unspecified erectile dysfunction type N52.9 and Coronary artery disease involving [place] heart, angina presence unspecified, unspecified vessel or lesion type I25.[address] [id number] 10/04/2023 Minal Grimes SOB (shortness of breath) R06.02 ; Chronic cough R05.3 and Coronary artery disease involving [place] heart, angina presence unspecified, unspecified vessel or lesion type I25.10 [address] [facility] [place], [place] [id number] 11/10/2022 Minal Grimes [facility] [address] [facility] [place], [place] [id number] 11/11/2022 Minal Grimes [facility] [address] [facility] [place], [place] [id number] 02/02/2023 Minal Grimes [facility] [address] [facility] [place], [place] [id number] 04/11/2023 Minal Grimes [facility] [address] [facility] [place], [place] [id number] 07/07/2023 Minal Grimes [facility] [address] [facility] [place], [place] [id number] 07/19/2023 Minal Grimes [facility] [address] [facility] [place], [place] [id number] 08/09/2023 Minal Grimes [facility] R06.2 LR Tracy [address] [facility], [place] [id number] 09/01/2023 Minal Grimes [facility] [address] [facility] [place], [place] [id number] 09/05/2023 Minal [facility] Admit HOSP [facility] [address] [facility] [place], [place] [id number] 09/06/2023 Minal Grimes ER Visit ER LR [address] [facility] [place], [place] [id number] 09/12/2023 Minal Grimes [facility] [address] [facility], [place] [id number] 09/20/2023 Minal Grimes [facility] [address] [facility], [place] [id number] 09/22/2023 Minal Grimes [facility] [address] [facility], [place] [id number] 10/02/2023 Minal Grimes [facility] [address] [facility], [place] [id number] 10/09/2023 Minal Grimes [facility] [address] [facility], [place] [id number] 10/09/2023 Minal Grimes [facility] [address] [facility], [place] [id number] 10/10/2023 Minal Grimes [facility] L40.9 LR [address] [facility], [place] [id number] 05/29/2023 Minal Grimes [facility] [address] [facility] [place] [id number] 06/19/2023 Minal Grimes [address] [id number] 09/28/2023 Minal Grimes [address] [id number] 10/02/2023 Minal Grimes Coronary artery disease involving [place] heart, angina presence unspecified, unspecified vessel or [...] - R06.02) 04/03/2023 Coronary artery disease involving [place] heart, angina presence unspecified, unspecified vessel or lesion type (ICD-10 - I25.10) 05/17/2023 Annual physical exam (ICD-10 - Z00.00) 07/06/2023 Depression (ICD-10 - F32.9) 07/06/2023 SK (seborrheic keratosis) (ICD-10 - L82.1) 07/26/2023 Wheezing (ICD-10 - R06.2) 07/26/2023 Viral URI with cough (ICD-10 - J06.9) 08/09/2023 Wheezing (ICD-10 - R06.2) 09/05/2023 Hospital Admit (ICD9-CM - HOSP) 09/06/2023 ER Visit (ICD9-CM - ER) 05/17/2023 Dietary counseling (ICD-10 - Z71.3) 09/11/2023 Choking, initial encounter (ICD-10 - T17.308A) 09/11/2023 Chronic cough (ICD-10 - R05.3) 09/20/2023 Erectile dysfunction, unspecified erectile dysfunction type (ICD-10 - N52.9) 10/02/2023 Coronary artery disease involving [place] heart, angina presence unspecified, unspecified vessel or lesion type (ICD-10 - I25.10) 10/02/2023 H/O acute myocardial infarction (ICD-10 - I25.2) 10/04/2023 SOB (shortness of breath) (ICD-10 - R06.02) 10/10/2023 Psoriasis (ICD-10 - L40.9) 10/04/2023 Chronic cough (ICD-10 - R05.3) 09/20/2023 Coronary artery disease involving w[place] heart, angina presence unspecified, unspecified vessel or lesion type (ICD-10 - I25.10) 10/02/2023 Essential hypertension (ICD-10 - I10) 07/06/2023 Wheezing (ICD-10 - R06.2) 09/11/2023 Wheeze (ICD-10 - R06.2) 05/17/2023 Chronic prostatitis (ICD-10 - N41.1) Venipuncture with 23g from L AC on 1st attempt. Patient tolerated procedure well. Pressure bandage applied. LUPE Delgadillo 04/03/2023 Fatigue, unspecified type (ICD-10 - R53.83) 04/03/2023 Depression (ICD-10 - F32.9) 05/17/2023 Hyperlipidemia, unspecified hyperlipidemia type (ICD-10 - E78.5) 10/04/2023 Coronary artery disease involving [place] heart, angina presence unspecified, unspecified vessel or lesion type (ICD-10 - I25.10) 05/17/2023 Coronary artery disease involving [place] heart, angina presence unspecified, unspecified vessel or lesion type (ICD-10 - I25.10) 05/17/2023 Essential hypertension (ICD-10 - I10) 05/17/2023 Depression (ICD-10 - F32.9) 05/17/2023 Encounter for immunization (ICD-10 - Z23) 11/09/[address] Grimes by Janina Grove, medical practitioners, on 11/09/2022. I, Dr. Grimes, have personally reviewed and agreed with the information entered by the medical practitioners. 12/08/[address] Grimes by Janina Grove, medical practitioners, on 12/08/2022. IDr. Grimes, have personally reviewed and agreed with the information entered by the medical practitioners. 02/02/[address] Grimes by Janina Grove medical practitioners, on 02/02/2023. I, Dr. Grimes, have personally reviewed and agreed with the information entered by the medical practitioners. 04/03/[address] Grimes by Janina Grove medical practitioners, on 04/03/2023. I, Dr. Grimes, have personally reviewed and agreed with the information entered by the medical practitioners. Right hand venipuncture done with 23 g needle. Successful first attempt. Pt tolerated it well.Bandaid applied Lab sent to [facility]. LUPE Funez 05/17/[address] Grimes by Janina Grove medical practitioners, on 05/17/2023. I, Dr. Grimes, have personally reviewed and agreed by the information entered by the medical practitioners. 07/06/[address] Grimes by Janina Grove medical practitioners, on 07/06/2023. I, Dr. Grimes, have personally reviewed and agreed with the information entered by the medical practitioners. 07/26/[address] Grimes by Janina Grove medical practitioners, on 07/26/2023. I, Dr. Grimes, have personally reviewed and agreed with the information entered by the medical practitioners. 09/11/[address] Alex Grimes by Janina Grove medical practitioners, on 09/11/2023. I, Dr. Grimes, have personally reviewed and agreed with the information entered by the medical practitioners. 09/20/2023 Other Scribed for Minal Grimes by Maya Case Virtual scribe on 09/20/2023. IMinal, have personally reviewed and agreed with the information entered by the Virtual scribe. Left ac venipuncture done with 23 g needle. Successful first attempt. Pt tolerated it well. Lab sent to [facility]. LUPE Funez 10/04/[address] Alex Grimes by Janina Grove, medical practitioners, on 10/04/2023. I, Dr. Grimes, have personally reviewed and agreed with the information entered by the medical practitioners. PLAN OF TREATMENT Next Appt Details Provider Name:Minal Grimes, 0 10/12/2023 03:00:00 PM, [address] [place] [address], [phone], Insurance Providers Payer Name Payer Address Payer Phone Subscriber Number Group Number Insured Name Patient Relationship to Insured Coverage Start Date Coverage End Date MEDICARE FQHC [address] [place] [phone] [id number] Sara Arnold Self - patient is the insured [employer] [place] OUT OF AREA [address] [place] [address] [id number] Sara Arnold Self - patient is the insured 0 MEDICAL (GENERAL) HISTORY Medical History History ICD Code Osteoarthritis bilateral knees and spine Hx of NSTEMI- RCA stent placed, Cardiolo gist Dr. aZmora @ [facility] [place] h/o Aortic aneurysm, resolved per patien t [...]
--- NOTE | 2023-10-11 09:45 | DI.RAD_ITS ---
Exam(s) RF BARIUM SWALLOW EXAM: RF BARIUM SWALLOW CLINICAL HISTORY: choking,COUGH, GERD,r05.9 TECHNIQUE: 2D and realtime digital imaging was performed. CONTRAST MATERIAL: Oral barium Oral water soluble contrast was administered. COMPARISON: No exams were available for comparison FINDINGS: ESOPHAGRAM: Performed single and double-contrast, upright and recumbent semi prone ESOPHAGRAM: The swallowing mechanism appears grossly intact. No obvious aspiration. No evidence of hypertense upper esophageal sphincter nor Zenker's diverticulum. No fixed lesions seen in the esopha la. No tertiary waves. No obvious reflux. GE junction appears unremarkable with no evidence of hi atal hernia nor Schatzki ring. IMPRESSION: No obvious focal abnormality seen in the esophagus. RADIATION DOSE DELIVERED: renetta Lovett=47 mGy
[2023-10-11] MEDS: Barium Sulfate 60% W/V 355 ML BTL PO (09:46)
[2023-10-11] MEDS: Barium Sulfate 98% W/W 140 ML BTL PO (09:47)
[2023-10-11] MEDS: Simethicone/Sod Bicarb/Cit Ac, 4 gram PACKET 1 PACKET PO (09:48)
== END ==
PROVIDERS: PCP Family Medicine; Visit Provider Physician Assistant Surgical
DX: K21.9 Gastro-esophageal reflux disease without esophagitis (principal); R05.9 Cough, unspecified
CPT/HCPCS: 74221; J3490

== ENCOUNTER → 2023-10-13 09:28 | Outpatient (BNVA) | payer MEDICARE, BC, SELFPAY | PROVIDERS: PCP Family Medicine; Referring Provider Family Medicine; Visit Provider Student in an Organized Health Care Education/Training Program | DX: R05.9 Cough, unspecified (principal); R91.1 Solitary pulmonary nodule; I50.30 Unspecified diastolic (congestive) heart failure; J90 Pleural effusion, not elsewhere classified | CPT/HCPCS: 76604; 99214 ==

== ENCOUNTER 2023-10-17 08:15 | Outpatient (CLI) | payer MEDICARE, BC, SELFPAY ==
--- NOTE | 2023-10-17 08:15 | RT.EKG_ITS ---
APPROVED REPORT Exam: Resting ECG Reason for Exam: CAD Patient Location: O HR:69 bpm ECG Measurements Heart Rate 69 [place] [id number] P [id number] QRSd 176 QRS -17 QT 439 T 156 QTc 471 Conclusion Atrial fibrillation...? atrial activity Ventricular premature complex...V complex w/ short R-R interval Left bundle branch block...QRSd>120, broad/notched R Artefact
== END 2023-10-17 08:16 | disposition home or self-care (01) ==
LOC: DI.CARD 08:16
PROVIDERS: PCP Family Medicine; Visit Provider Internal Medicine Cardiovascular Disease
DX: I25.10 Atherosclerotic heart disease of native coronary artery without angina pectoris
CPT/HCPCS: 93010

== ENCOUNTER → 2023-10-17 11:06 | Outpatient (BNVA) | payer MEDICARE, BC, SELFPAY | PROVIDERS: PCP Family Medicine; Referring Provider Family Medicine; Visit Provider Internal Medicine Cardiovascular Disease | DX: I50.33 Acute on chronic diastolic (congestive) heart failure (principal); I48.91 Unspecified atrial fibrillation; I49.3 Ventricular premature depolarization; I44.7 Left bundle-branch block, unspecified; I10 Essential (primary) hypertension; G47.33 Obstructive sleep apnea (adult) (pediatric); I25.10 Atherosclerotic heart disease of native coronary artery without angina pectoris | CPT/HCPCS: 93005; 99215 ==

== ENCOUNTER → 2023-11-08 02:41 | Outpatient (CLI) | payer MEDICARE, BC, SELFPAY ==
--- NOTE | 2023-11-08 07:30 | DI.US_ITS ---
APPROVED REPORT EXAM: Comprehensive 2D, Doppler, and color-flow Echocardiogram Patient Location: Out-Patient Roller Turner: Lizzy Correa RDCS (AE) Indications: A Fib, CAD, Check LV function, HTN Other Information Study Quality: Fair. Technically limited study due to body habitus. Conclusion Moderate concentric left ventricular hypertrophy Ejection fraction is 40% with global hypokinesis Right ventricle is normal in size and function Both atria are moderately enlarged Aortic valve is sclerotic without stenosis or regurgitation Trace to mild mitral regurgitation Mild to moderate tricuspid regurgitation. Estimated right ventricular systolic pressure is 42 mmHg Patient is in atrial fibrillation throughout with qmve-ot-dhap variation Wall motion Left Ventricle The left ventricle is normal size. Left ventricular systolic function is moderately decreased. Modera te concentric left ventricular hypertrophy. There is global hypokinesis of the left ventricle. There is no ventricular septal defect visualized. LVEF is 40%. Right Ventricle Right ventricle is grossly normal in size. Right ventricle is mildly hypokinetic. Atria Left atrium is moderately dilated. Right atrium is moderately dilated. The interatrial septum is inta ct with no evidence for an atrial septal defect. Aortic Valve The Aortic valve is sclerotic. There is no aortic valvular stenosis. No aortic regurgitation is prese nt. Mitral Valve The mitral valve is normal in structure. No evidence of mitral valve stenosis. Trace to mild mitral r egurgitation. Tricuspid Valve The tricuspid valve is normal in structure. There is no tricuspid valve stenosis. Mild to moderate tr icuspid regurgitation. The RVSP is 42.1mmHg. Pulmonic Valve Pulmonic valve is not well visualized. There is no pulmonic valvular stenosis. There is no pulmonic v alvular regurgitation. Great Vessels The aortic root is normal in size. The aortic root size is dilated. The ascending aorta is mild to mo derately dilated. Aortic arch is not well visualized. The ascending aorta size is dilated. The IVC co llapses <50% with inspiration. Pericardium There is no pericardial effusion. 2D Dimensions IVSD d PLAX 1.41 cm M: 0.6-1.2 Ao Root d 3.90 cm M: 3.1 - 3.7 LVPW d PLAX 1.40 cm M: 0.6 - 1.2 Ao Asc Diam d 4.05 cm M: 2.6 - 3.4 LVID d PLAX 5.62 cm M: 4.2 - 5.8 LVDs 4.63 cm M: 2.5 - 4.0 LV EF Teichholz 36.1 % FS 17.57 % LV EDV (Teich) 154.7 mL LV ESV (Teich) 98.8 mL M-Mode TAPSE 1.69 cm (M/F) >1.7 Auto EF LV EDV A4C 191.7 mL LV EDV A2C 221.4 mL LV EDV BP 210.7 mL LV ESV A4C 124.3 mL LV ESV A2C 144.0 mL LV ESV BP 134.6 mL LVEF(%) A4C 35.1 % LVEF(%) A2C 34.9 % LVEF(%) BP 36.1 % LV SV A4C 67.4 ml LV SV A2C 77.4 ml LV SV BP 76.2 ml LV CO A4C 4.0 L/min LV CO A2C 4.5 L/min LV CO BP 4.3 L/min HR A4C 58.83 BPM HR A2C 58.73 BPM LV EDV Index (BP) LV Strain Long Pk Overal Avg (s) 11.69 RV Strain Global Peak Long. Strain A4C 8.21 Global Peak Long. Strain A4C FW 10.91 LA Volume LA Length A4C 7.2 cm LA Length A2C 6.0 cm LA Area A4C s 29.89 cm2 LA Area A2C s 28.35 cm2 LA Vol A4C A-L 105.82 mL LA Vol A2C A-L 112.96 mL LA Vol Biplane A-L 119.1 mL LA Vol/BSA A4C A-L LA Vol/BSA A2C A-L LA Vol/BSA BP A-L 52.7 mL/m2 LA Vol A4C MOD 97.2 mL LA Vol A2C MOD 107.1 mL LA Vol BP MOD 111.0 mL RA Volume RA Area A4C 26.8 cm2 RA ESV A4C (A-L) 87.9mL RA Vol/BSA A4C A-L RA Length A4C 6.9 cm RA ESV A4C (MOD) 84.4mL LV Diastology MV E' lateral 0.095 (>0.1 m/s) MV E Vmax 1.02 (0.4-1.3 m/s) MV E/E' LAT 10.77 (<14) Aortic Valve AoV Vmax 1.38 m/s LVOT Vmax 1.18 m/s AoV Peak Grad 7.6 mmHg LVOT Peak Grad 5.5 mmHg AoV Area (Vmax) 2.62 cm2 LVOT VTI 0.217 m AoV VTI 0.293 m LVOT Mean Grad 2.8 mmHg AoV Mean Aguilar. 0.95 m/s LVOT SV 66.94 mL AoV Mean Grad 4.2 mmHg LVOT Diam s 1.95 cm AoV Area (VTI) 2.29 cm2 Velocity Ratio 0.86 Mitral Valve MV DT 244 (160-240 msec) MV Vmax TIPS 1.05 m/s MV Mean Grad 1.4 (<2mmHg) MV VTI 0.263 m Pulmonary Valve PV Vmax 0.60 (0.5-1.5 m/s) RVOT Vmax 0.39 m/s PV Peak Grad 1.4 mmHg RVOT Peak Gr. 0.6 mmHg PV Mean Aguilar 0.46 m/s RVOT VTI 0.060 m PV Mean Grad 0.9 mmHg RVOT Mean Gr. 0.3 mmHg Tricuspid Valve RA Pressure 8.00 mmHg TR Vmax 2.92 m/s TV S' 0.11 m/s TR Peak Grad 34.1 mmHg RVSP (TR) 42.1 mmHg
== END ==
PROVIDERS: PCP Family Medicine; Visit Provider Internal Medicine Cardiovascular Disease
DX: I25.10 Atherosclerotic heart disease of native coronary artery without angina pectoris (principal); I48.91 Unspecified atrial fibrillation
CPT/HCPCS: 93306

== ENCOUNTER → 2023-11-14 09:00 | Outpatient (BNVA) | payer MEDICARE, BC, SELFPAY | PROVIDERS: PCP Family Medicine; Referring Provider Family Medicine; Visit Provider Internal Medicine Cardiovascular Disease | DX: I48.91 Unspecified atrial fibrillation (principal); I50.33 Acute on chronic diastolic (congestive) heart failure; I25.10 Atherosclerotic heart disease of native coronary artery without angina pectoris | CPT/HCPCS: 99213 ==

== ENCOUNTER 2023-11-20 06:17 | Day surgery (SDC) | payer MEDICARE, BC, SELFPAY ==
--- NOTE | 2023-11-20 06:30 | RT.EKG_ITS ---
APPROVED REPORT Exam: Resting ECG Reason for Exam: Pre- cardioversion (scheduled) Patient Location: O HR:49 bpm ECG Measurements Heart Rate 49 AXIS HI [id number] P [id number] QRSd 180 QRS -34 QT 510 T 162 QTc 460 Conclusion Atrial fibrillation...? atrial activity LBBB
[2023-11-20 06:39] VITALS: BP 147/61; PULSE 54; RESP 18; TEMP 36.9; O2SAT 98
--- NOTE | 2023-11-20 07:04 | ANES.PREOP_ITS ---
General Info Date of Service Date Performed: 11/20/23 Height: 6 ft Weight: 99.8 kg Body Mass Index (BMI): 29.8 Surgical Procedure: Operation Date: 11/20/23 07:30 Proposed Procedure Side Surgeon p Cardioversion Marlin Aponte MD Meds Allergies and Home Medications Allergies Allergy/AdvReac Type Severity Reaction Status Date / Time penicillin V Allergy Severe Anaphylaxis Verified 11/20/23 06:33 meloxicam Allergy Unknown Verified 11/20/23 06:33 prednisone AdvReac Intermediate mood Verified 11/20/23 06:33 change RH 10/10/23 escitalopram AdvReac worse Verified 11/20/23 06:33 mood, sexual dysfxn RH 10/10/23 oxycodone AdvReac Upset Verified 11/20/23 06:33 stomach Home Medication Medication Instructions Recorded albuterol sulfate 90 mcg/actuation 2 puff inhalation Q6H PRN 07/07/22 aerosol inhaler (Ventolin HFA) aspirin 81 mg tablet,delayed 81 mg PO DAILY 07/07/22 release atorvastatin 40 mg tablet 40 mg PO DAILY 07/07/22 nitroglycerin 0.4 mg sublingual 0.4 mg sublingual Q5M PRN 07/07/22 tablet (Nitrostat) bupropion HCl 150 mg 24 hr tablet, 150 mg PO BID 09/28/23 extended release apixaban 5 mg tablet 5 mg PO BID #60 tabs 10/17/23 furosemide 40 mg tablet 40 mg PO DAILY #90 tabs 10/26/23 sacubitril 24 mg-valsartan 26 mg 1 tab PO BID #60 tabs 11/14/23 tablet tadalafil 10 mg tablet mg 11/20/23 Current Visit Medications: Current Medications Generic Name Dose Route Start Last Admin Trade Name Freq PRN Reason Stop Dose Admin Sodium Chloride 1,000 mls @ 30 mls/hr 11/20/23 06:00 Saline 1000ml Bag IV 11/20/23 16:00 INFUSION WALTER IV Miscellaneous Supplies 1 each 11/20/23 06:00 Iv Access IV 12/17/23 23:59 DIRECTED WALTER Sodium Chloride 0 ml 11/20/23 06:00 Normal Saline Flush 10 Ml Syr IV 12/17/23 23:59 PRN PRN Sodium Chloride 0 ml 11/20/23 06:00 Normal Saline 10 Ml Vial IJ 12/17/23 23:59 DIRECTED PRN Sterile Water 0 ml 11/20/23 06:00 Water,Injection,Sterile 10 Ml Vial IJ 12/17/23 23:59 DIRECTED PRN PFSH Active Problems Active Problems: Problem Status Onset Code Atrial fibrillation I48.91 Pulmonary nodule R91.1 Pleural effusion J90 (HFpEF) heart failure with preserved ejection fraction I50.30 GERD (gastroesophageal reflux disease) K21.9 Cough R05.9 Allergies T78.40XA Iron deficiency E61.1 CAD (coronary artery disease) I25.10 HLD (hyperlipidemia) E78.5 Erectile dysfunction N52.9 Psoriasis L40.9 Constipation K59.00 Osteoarthritis M19.90 JOANNE (obstructive sleep apnea) G47.33 HTN (hypertension) I10 Anxiety F41.9 Depression F32.A Medical History Medical History Pneumonia History of nuclear stress test History of herpes genitalis Former smoker quit in age 61 Hx of chronic prostatitis Hx of aortic aneurysm Hx of non-ST elevation myocardial infarction (NSTEMI) RCA stent placed 2016 in [place], [employer] [place] [facility] [place] 2016 [place] w PCI to RCA Surgical History Surgical History History of carpal tunnel release of both wrists 2018, revision 02/21 Left cataract 2015 Lipoma of buttock right medial buttock lipoma excision 10/11 Right cataract 12/01/11 History of total right knee replacement 11/29/17 Tobacco Smoking/Tobacco Use Status: Former Tobacco Use Alcohol Alcohol Intake: former Substance Use Substance use: Never Substance use type: does not use Vital Signs and Lab Results Vital Signs Most Recent Vital Signs in EMR: Most Recent Vital Signs Temp Pulse Resp BP Pulse Ox 36.9 C 54 L 18 147/61 H 98 11/20/23 06:39 11/20/23 06:39 11/20/23 06:39 11/20/23 06:39 11/20/23 06:39 Lab Results Blood Type / Crossmatch: No Data to Display Complete Blood Count: No Data to Display Complete Metabolic Panel: No Data to Display Liver Function Panel: No Data to Display Coagulation Panel: No Data to Display Cardiac Panel: No Data to Display Arterial Blood Gas: No Data to Display Venous Blood Gas: No Data to Display Pancreas Panel: No Data to Display Thyroid Panel: No Data to Display Infectious Disease: No Data to Display Blood Cultures: No Data to Display Toxicology Panel: No Data to Display Imaging and Studies Imaging and Studies Study information below may be from another EMR and interpreted by another provider. Please see original notes in EMR for more complete details. EKG Summary: Reviewed, Atrial Fibrillation, bradycardic Echocardiogram Summary: Patient Name: Sara Arnold Unit #: [id number] Loc: DI Ordering Provider: Marlin Aponte M.D. Status: REG CLI Primary Care Provider: David Jeong Date of Exam: 11/08/23 Sex: M Admission Date: 11/08/23 : 1940 Age: 83 APPROVED REPORT EXAM: Comprehensive 2D, Doppler, and color-flow Echocardiogram Patient Location: Out-Patient Tallow Maker: Lizzy Correa RDCS (AE) Indications: A Fib, CAD, Check LV function, HTN Other Information Study Quality: Fair. Technically limited study due to body habitus. Conclusion Moderate concentric left ventricular hypertrophy Ejection fraction is 40% with global hypokinesis Right ventricle is normal in size and function Both atria are moderately enlarged Aortic valve is sclerotic without stenosis or regurgitation Trace to mild mitral regurgitation Mild to moderate tricuspid regurgitation. Estimated right ventricular systolic pressure is 42 mmHg Patient is in atrial fibrillation throughout with evdv-op-lkhl variation Wall motion Left Ventricle The left ventricle is normal size. Left ventricular systolic function is moderately decreased. Moderate concentric left ventricular hypertrophy. There is global hypokinesis of the left ventricle. There is no ventricular septal defect visualized. LVEF is 40%. Right Ventricle Right ventricle is grossly normal in size. Right ventricle is mildly hypokinetic. Atria Left atrium is moderately dilated. Right atrium is moderately dilated. The interatrial septum is intact with no evidence for an atrial septal defect. Aortic Valve The Aortic valve is sclerotic. There is no aortic valvular stenosis. No aortic regurgitation is present. Mitral Valve The mitral valve is normal in structure. No evidence of mitral valve stenosis. Trace to mild mitral regurgitation. Tricuspid Valve The tricuspid valve is normal in structure. There is no tricuspid valve stenosis. Mild to moderate tricuspid regurgitation. The RVSP is 42.1mmHg. Pulmonic Valve Pulmonic valve is not well visualized. There is no pulmonic valvular stenosis. There is no pulmonic valvular regurgitation. Great Vessels The aortic root is normal in size. The aortic root size is dilated. The ascending aorta is mild to moderately dilated. Aortic arch is not well visualized. The ascending aorta size is dilated. The IVC collapses <50% with inspiration. Pericardium There is no pericardial effusion. 2D Dimensions IVSD d PLAX 1.41 cm M: 0.6-1.2Ao Root d 3.90 cm M: 3.1 - 3.7 LVPW d PLAX 1.40 cm M: 0.6 - 1.2Ao Asc Diam d 4.05 cm M: 2.6 - 3.4 LVID d PLAX 5.62 cm M: 4.2 - 5.8 LVDs 4.63 cm M: 2.5 - 4.0 LV EF Teichholz 36.1 % FS17.57 % LV EDV (Teich)154.7 mL LV ESV (Teich)98.8 mL M-Mode TAPSE 1.69 cm (M/F) >1.7 Auto EF LV EDV U8Q968.7 mLLV EDV K0N290.4 mLLV EDV BP210.7 mL LV ESV F0Y573.3 mLLV ESV B9T316.0 mLLV ESV BP134.6 mL LVEF(%) A4C35.1 %LVEF(%) A2C34.9 %LVEF(%) BP36.1 % LV SV A4C67.4 mlLV SV A2C77.4 mlLV SV BP76.2 ml LV CO A4C4.0 L/minLV CO A2C4.5 L/minLV CO BP4.3 L/min HR A4C58.83 BPMHR A2C58.73 BPMLV EDV Index (BP) LV Strain Long Pk Overal Avg (s) 11.69 RV Strain Global Peak Long. Strain A4C8.21 Global Peak Long. Strain A4C FW10.91 LA Volume LA Length A4C7.2 cmLA Length A2C6.0 cm LA Area A4C s 29.89 cm2LA Area A2C s 28.35 cm2 LA Vol A4C A-L105.82 mLLA Vol A2C A-L112.96 mLLA Vol Biplane A-L119.1 mL LA Vol/BSA A4C A-LLA Vol/BSA A2C A-LLA Vol/BSA BP A-L 52.7 mL/m2 LA Vol A4C MOD97.2 mLLA Vol A2C HOU569.1 mLLA Vol BP TPG974.0 mL RA Volume RA Area A4C26.8 cm2RA ESV A4C (A-L)87.9mLRA Vol/BSA A4C A-L RA Length A4C6.9 cmRA ESV A4C (MOD)84.4mL LV Diastology MV E' lateral0.095 (>0.1 m/s)MV E Vmax 1.02 (0.4-1.3 m/s) MV E/E' LAT10.77 (<14) Aortic Valve AoV Vmax1.38 m/sLVOT Vmax 1.18 m/s AoV Peak Grad7.6 mmHgLVOT Peak Grad 5.5 mmHg AoV Area (Vmax)2.62 vv4NQAS VTI0.217 m AoV VTI0.293 mLVOT Mean Grad 2.8 mmHg AoV Mean Aguilar.0.95 m/sLVOT SV 66.94 mL AoV Mean Grad4.2 mmHgLVOT Diam s 1.95 cm AoV Area (VTI)2.29 cm2 Velocity Ratio 0.86 Mitral Valve MV DT 244 (160-240 msec) MV Vmax TIPS 1.05 m/s MV Mean Grad 1.4 (<2mmHg) MV VTI 0.263 m Pulmonary Valve PV Vmax 0.60 (0.5-1.5 m/s)RVOT Vmax 0.39 m/s PV Peak Grad 1.4 mmHgRVOT Peak Gr.0.6 mmHg PV Mean Vel0.46 m/sRVOT VTI0.060 m PV Mean Grad 0.9 mmHgRVOT Mean Gr.0.3 mmHg Tricuspid Valve RA Pressure 8.00 mmHgTR Vmax 2.92 m/s TV S'0.11 m/sTR Peak Grad 34.1 mmHg RVSP (TR) 42.1 mmHg Ordered By: Marlin Aponte M.D. CC: JEAN-PAUL DAVID RHODESTEVIN MARTIN Dictated By: Marlin Aponte M.D. 11/08/23944 <Electronically signed by Marlin Aponte M.D. in [place]> 11/09/23816 Transcribed By: Marlin Aponte MD 11/08/23944 This is privileged, confidential information intended only for the provider named. Any use or distribution by any person other than this provider is strictly prohibited. If you receive this report in error, please notify us immediately at [phone] and return the original report to us at the address above. Thank-you. Pulmonary Function Summary: Pulmonary Function Test PATIENT NAME: Sara Arnold UNIT #: [id number] ADMITTING PROVIDER: Deann Cantor M.D. PRIMARY CARE PROVIDER: DAVID JEONG MD DATE OF ADMIT: 10/03/23 : 1940 Date of service: 10/03/23 Time of Service: 10:01 Pulmonary Function Test Result Indications: Dyspnea Interpretation Spirometry: There is no airflow limitation. No bronchodilator response. 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 Clinical Correlation therefore is recommended. cc: Dictated by: DEANN CANTOR MD Dictated: 10/03/23 Time: 1241 <Electronically signed by Deann Cantor M.D.> Date: 10/03/231244 Date: Date: Transcribed Date: 10/03/23 Transcribed Time: 1241 By: JACQUIE Anesthesia Assessment and Plan Anesthesia History Personal History: No History of Anesthesia Complications Family History: No Family History of Anesthesia Complications Exercise Tolerance Exercise Tolerance: Metabolic Equivalents>4 Pertinent Negatives Pertinent Negatives: No Symptoms of GERD, No Major Cardiovascular Symptoms or Complaints, No Major Pulmonary Symptoms or Complaints and No History of CVA/TIA Cardiac & Pulmonary Exam Cardiac Exam: Normal S1/S2 Heart Sounds Pulmonary Exam: Clear Bilateral Breath Sounds Implantable Cardiac Device Does patient have a Pacemaker or an ICD?: No Airway Exam Known Difficult Airway: No Mallampati Class: 2 Mouth Opening: Normal (> 3cm) Thyromental Distance: Greater than 3 cm Neck Range of Motion: Full ROM Neck Circumference: Normal Teeth Condition: Generalized Poor Dentition, Removable Dentures/Plates Upper and Removable Dentures/Plates Lower ASA Classification ASA Score: ASA 3 Emergency Case?: No NPO Status NPO Status: NPO Clears >2 hours, Solids >8 hours Anesthesia Plan Resuscitation Status: Full Code Anesthesia Technique: General Anesthesia Airway Planned: Natural Airway Monitors Used: Standard Monitors
[2023-11-20] MEDS: Normal Saline 1,000 ML 30 ML IV (07:14)
[2023-11-20 07:41] VITALS: BMI 29.8
--- NOTE | 2023-11-20 07:59 | W.CARDVER ---
Date of service: 11/20/23 Time of Service: 07:59 Cardioversion PRE-OP DIAGNOSES: Atrial fibrillation POST-OP DIAGNOSES: same Refer to Anesthesia Record: Refer to anesthesia record Indications: Atrial fibrillation, congestive heart failure Procedure Description: Synchronized cardioversion Patient presents for elective synchronized cardioversion. He has been continuously anticoagulated with Eliquis for a minimum of 4 weeks. Resting EKG showed left bundle branch block, atrial fibrillation average heart rate 54 Patient was sedated under the direction of the anesthesiologist. When adequate sedation was obtained he had 1 synchronized shock at 150 W seconds delivered with anterior and posterior pads. Subsequent rhythm was sinus rate approximately 70. Patient was taken to same-day surgery to recover. Postprocedure EKG is pending. He will be discharged when fully awake
--- NOTE | 2023-11-20 08:00 | RT.EKG_ITS ---
APPROVED REPORT Exam: Resting ECG Reason for Exam: Post-cardioversion (scheduled) Patient Location: O HR:60 bpm ECG Measurements Heart Rate 60 AXIS NY 256 P -86 QRSd 176 QRS -38 QT 490 T 154 QTc 488 Conclusion Sinus rhythm...normal P axis, V-rate 60- 99 Prolonged NY interval...NY >220, V-rate 50- 90 Left bundle branch block...QRSd>120, broad/notched R
--- NOTE | 2023-11-20 08:01 | W.PM.DSUDISC ---
Date of service: 11/20/23 Time of Service: 08:01 Discharge Plan Disposition Patient Disposition: Home Condition: Stable Discharge Details Reason For Visit: Synchronized cardioversion Attending Provider: Marlin Aponte Primary Care Provider: Minal Grimes Home Meds and New Rx's Prescriptions: No Action apixaban 5 mg tablet 5 mg PO BID Qty: 60 8RF sacubitril-valsartan 24-26 mg tablet 1 tab PO BID Qty: 60 3RF albuterol sulfate [Ventolin HFA] 90 mcg/actuation HFA aerosol inhaler 2 puff inhalation Q6H PRN aspirin 81 mg tablet,delayed release (DR/EC) 81 mg PO DAILY nitroglycerin [Nitrostat] 0.4 mg tablet, sublingual 0.4 mg sublingual Q5M PRN Rx Instructions: do not exceed 3 doses per episode atorvastatin 40 mg tablet 40 mg PO DAILY furosemide 40 mg tablet 40 mg PO DAILY Qty: 90 3RF tadalafil 10 mg tablet Patient Comments: TAKE 1 TO 2 TABLETS BY MOUTH NEEDED ONCE DAILY bupropion HCl 150 mg tablet sustained-release 12 hr 150 mg PO BID Patient Comments: TAKE ONE TABLET BY MOUTH TWICE A DAY Discharge Instructions Activity:: Activity as Tolerated Diet:: As Tolerated Discharge Orders Discharge Orders: Discharge Order (Routine); Ordered 11/20/23 Ordered By: Marlin Aponte DS: Diagnosis Discharge Diagnosis (1) Atrial fibrillation: Status: Chronic
[2023-11-20 08:03] VITALS: BP 100/59; PULSE 65; RESP 16; TEMP 36.5; O2SAT 96
[2023-11-20 08:27] VITALS: BP 108/69; PULSE 62; RESP 16; TEMP 36.6; O2SAT 98
--- NOTE | 2023-11-20 09:14 | W.ANESPOSTOP ---
Postoperative Evaluation Date, Time and Location Date Performed: 11/20/23 Time Performed: 08:05 Patient Location: Day Surgery Unit Vital Signs Most Recent Imported Vital Signs: Most Recent Vital Signs Temp Pulse Resp BP Pulse Ox 36.6 C 62 16 108/69 98 11/20/23 08:27 11/20/23 08:27 11/20/23 08:27 11/20/23 08:27 11/20/23 08:27 Pain Score Most Recent Pain Score: Most Recent Pain Score Pain Level 0 11/20/23 08:27 Assessment Mental Status: Awake (Alert & Oriented to Patient Baseline) Airway and Respiratory Function: Patent airway with normal (patient baseline) respiratory exam Cardiovascular Function: Hemodynamically Stable Hydration Status: Adequately Hydrated Nausea & Vomiting: No Nausea or Vomiting Pain: Pt. Denies Any Pain Peripheral Nerve Block: Patient did not receive a nerve block
== END 2023-11-20 09:12 | disposition home or self-care (01) ==
PROVIDERS: PCP Family Medicine; Visit Provider Internal Medicine Cardiovascular Disease
PROC: 5A2204Z Restoration of Cardiac Rhythm, Single (ICD-10-PCS; CPT 92960; principal; 2023-11-20 07:30)
DX: I48.91 Unspecified atrial fibrillation (principal); I50.30 Unspecified diastolic (congestive) heart failure; I25.10 Atherosclerotic heart disease of native coronary artery without angina pectoris; I11.0 Hypertensive heart disease with heart failure; I44.7 Left bundle-branch block, unspecified
CPT/HCPCS: 92960; 93005; 93010; J2001; J2704

== ENCOUNTER 2023-12-18 13:16 | Outpatient (CLI) | payer MEDICARE, BC, SELFPAY ==
--- NOTE | 2023-12-18 13:15 | RT.EKG_ITS ---
APPROVED REPORT Exam: Resting ECG Reason for Exam: afib Patient Location: O HR:47 bpm ECG Measurements Heart Rate 47 AXIS AR [id number] P [id number] QRSd 171 QRS -13 QT 491 T 185 QTc 434 Conclusion Atrial fibrillation versus junctional Left bundle branch block...QRSd>120, broad/notched R Baseline wander in lead(s) V3,V5
== END 2023-12-18 13:17 | disposition home or self-care (01) ==
LOC: DI.CARD 13:17
PROVIDERS: PCP Family Medicine; Visit Provider Internal Medicine Cardiovascular Disease
DX: I48.91 Unspecified atrial fibrillation (principal)
CPT/HCPCS: 93010

== ENCOUNTER → 2023-12-18 13:32 | Outpatient (BNVA) | payer MEDICARE, BC, SELFPAY | PROVIDERS: PCP Family Medicine; Referring Provider Family Medicine; Visit Provider Internal Medicine Cardiovascular Disease | DX: I25.10 Atherosclerotic heart disease of native coronary artery without angina pectoris (principal); I44.7 Left bundle-branch block, unspecified; I50.42 Chronic combined systolic (congestive) and diastolic (congestive) heart failure; I25.2 Old myocardial infarction; I48.91 Unspecified atrial fibrillation | CPT/HCPCS: 93005; 99213 ==

== ENCOUNTER 2024-03-11 09:46 | Outpatient (CLI) | payer MEDICARE, BC, SELFPAY ==
--- NOTE | 2024-03-11 09:45 | RT.EKG_ITS ---
APPROVED REPORT Exam: Resting ECG Reason for Exam: afib Patient Location: O HR:182 bpm ECG Measurements Heart Rate 182 AXIS TN [id number] P [id number] QRSd 151 QRS -34 QT 231 T [id number] QTc 402 Conclusion Junctional rhythm LBBB
== END 2024-03-11 09:47 | disposition home or self-care (01) ==
LOC: DI.CARD 09:47
PROVIDERS: PCP Family Medicine; Visit Provider Internal Medicine Cardiovascular Disease
DX: I25.10 Atherosclerotic heart disease of native coronary artery without angina pectoris (principal); I48.91 Unspecified atrial fibrillation; I49.2 Junctional premature depolarization; I44.7 Left bundle-branch block, unspecified; I50.42 Chronic combined systolic (congestive) and diastolic (congestive) heart failure
CPT/HCPCS: 93010

== ENCOUNTER → 2024-03-11 13:21 | Outpatient (BNVA) | payer MEDICARE, BC, SELFPAY | PROVIDERS: PCP Family Medicine; Referring Provider Family Medicine; Visit Provider Internal Medicine Cardiovascular Disease | DX: I50.42 Chronic combined systolic (congestive) and diastolic (congestive) heart failure (principal); I44.7 Left bundle-branch block, unspecified; I48.91 Unspecified atrial fibrillation; I25.10 Atherosclerotic heart disease of native coronary artery without angina pectoris | CPT/HCPCS: 93005; 99213 ==

== ENCOUNTER → 2024-05-24 08:56 | Outpatient (BNVA) | payer MEDICARE, BC, SELFPAY | PROVIDERS: PCP Family Medicine; Referring Provider Family Medicine; Visit Provider Internal Medicine Cardiovascular Disease | DX: I25.10 Atherosclerotic heart disease of native coronary artery without angina pectoris (principal); I48.91 Unspecified atrial fibrillation; Z95.0 Presence of cardiac pacemaker | CPT/HCPCS: 99213 ==

== ENCOUNTER → 2024-09-27 08:58 | Outpatient (BNVA) | payer MEDICARE, BC, SELFPAY | PROVIDERS: PCP Family Medicine; Referring Provider Family Medicine; Visit Provider Internal Medicine Cardiovascular Disease | DX: Z95.0 Presence of cardiac pacemaker (principal); I48.91 Unspecified atrial fibrillation; I25.10 Atherosclerotic heart disease of native coronary artery without angina pectoris | CPT/HCPCS: 99214 ==

== ENCOUNTER 2024-09-30 01:53 | Outpatient (CLI) | payer MEDICARE, BC, SELFPAY ==
--- NOTE | 2024-09-30 07:00 | DI.CT_ITS ---
Exam(s) CT CHEST WO EXAM: CT CHEST WO CLINICAL HISTORY: assess stability PULMONARY NODULE,R91.1. TECHNIQUE: Imaging protocol: Axial computed tomography images were obtained and coronal and sagittal reformatted images were created and reviewed. Lung Computer Aided Detection (CAD) was utilized. COMPARISON: CT CT CHEST WO from 10/06/2023 FINDINGS: Tracheobronchial tree: Patent where visualized. No bronchiectasis is present. Pulmonary parenchyma: There is a small peribronchial infiltrate in the medial aspect of the right upp er lobe which is new. There is a stable 4-5 mm nodule in the right middle lobe (series 2, image 109) . There has been a significant decrease in size of the right pleural effusion which is small at this time. There is a persistent peripheral opacity in the right lower lobe which may represent atelecta sis or possible pneumonia. There is scarring seen in the right lower lobe. No new pulmonary nodules are present. There is an unchanged perifissural nodule associated with the right middle lobe. Mediastinum and Marie: No dominant adenopathy or fluid collection. The esophagus is unremarkable. Thyroid gland: Unremarkable. Pleura: No left pleural effusion. No pneumothorax. Heart: Mild cardiomegaly. Three vessel coronary artery calcification is present. No pericardial eff usion. Aorta: Thoracic aorta non-dilated. Atherosclerotic calcification is present. Upper abdomen: No acute abnormality. Lymph nodes: Within normal limits. Tubes, Catheters, and Lines: There is a cardiac pacing device in place. Soft tissues: Unremarkable. Bones:Within normal limits for the patient's age. IMPRESSION: 1. Stable right middle lobe pulmonary nodule. No new pulmonary nodules. 2. Interval decrease in size of the right pleural effusion and consolidation in the right lower lobe. There is a persistent small pleural effusion. 3. Persistent peripheral opacity in the right lower lobe which may represent atelectasis or possible pneumonia. 4. New small peribronchial infiltrate in the right upper lobe. This may represent pneumonia. Please correlate clinically. RADIATION DOSE DELIVERED: 356.13mGy.cm Total DLP 356.13mGy.cm Total DLP DATA REPOSITORY: All CT scans at this facility are submitted to the National Radiology Data Registry (NRDR) Dose Index Registry (DIR) with the [employer] (A[employer]). RADIATION OPTIMIZATION: All CT scans at this facility use at least one of these dose optimization te chniques: automated exposure control; mA and/or kV adjustment per patient size (includes targeted exa ms where dose is matched to clinical indication); or iterative reconstruction.
== END 2024-09-30 02:13 ==
LOC: DI 01:53
PROVIDERS: PCP Family Medicine; Visit Provider Student in an Organized Health Care Education/Training Program
DX: R91.1 Solitary pulmonary nodule (principal)
CPT/HCPCS: 71250

== ENCOUNTER → 2024-10-14 10:14 | Outpatient (BNVA) | payer MEDICARE, BC, SELFPAY | PROVIDERS: PCP Family Medicine; Referring Provider Family Medicine; Visit Provider Physician Assistant Surgical | DX: R05.9 Cough, unspecified (principal); I50.33 Acute on chronic diastolic (congestive) heart failure; J90 Pleural effusion, not elsewhere classified; R91.1 Solitary pulmonary nodule | CPT/HCPCS: 99214 ==

== ENCOUNTER → 2025-01-15 11:02 | Outpatient (BNVA) | payer MEDICARE, BC, SELFPAY | PROVIDERS: PCP Family Medicine; Referring Provider Family Medicine; Visit Provider Physician Assistant Surgical | DX: I50.33 Acute on chronic diastolic (congestive) heart failure (principal); J90 Pleural effusion, not elsewhere classified; R91.1 Solitary pulmonary nodule; J45.909 Unspecified asthma, uncomplicated | CPT/HCPCS: 99214 ==

== ENCOUNTER → 2025-03-06 11:16 | Outpatient (BNVA) | payer MEDICARE, BC, SELFPAY | PROVIDERS: PCP Family Medicine; Referring Provider Family Medicine; Visit Provider Internal Medicine Cardiovascular Disease | DX: I48.0 Paroxysmal atrial fibrillation (principal); I25.10 Atherosclerotic heart disease of native coronary artery without angina pectoris; C67.9 Malignant neoplasm of bladder, unspecified; Z95.0 Presence of cardiac pacemaker; Z79.01 Long term (current) use of anticoagulants | CPT/HCPCS: 99214 ==

== ENCOUNTER → 2025-04-11 10:59 | Outpatient (BNVA) | payer MEDICARE, BC, SELFPAY | PROVIDERS: PCP Family Medicine; Visit Provider Internal Medicine Cardiovascular Disease | DX: I48.91 Unspecified atrial fibrillation (principal); I25.10 Atherosclerotic heart disease of native coronary artery without angina pectoris; Z95.0 Presence of cardiac pacemaker | CPT/HCPCS: 99214 ==

== ENCOUNTER 2025-08-19 12:53 | Outpatient (CLI) | payer MEDICARE, BC, SELFPAY ==
--- NOTE | 2025-08-19 12:45 | RT.EKG_ITS ---
APPROVED REPORT Exam: Resting ECG Reason for Exam: CAD Patient Location: O HR:87 bpm ECG Measurements Heart Rate 87 AXIS CO 564 P 0 QRSd 174 QRS 0 QT 459 T -23 QTc 553 Conclusion Ventricular-paced rhythm No further analysis attempted due to paced rhythm Baseline wander in lead(s) V1,V2
== END 2025-08-19 12:54 | disposition home or self-care (01) ==
LOC: DI.CARD 13:00
PROVIDERS: PCP Family Medicine; Referring Provider Family Medicine; Visit Provider Internal Medicine Cardiovascular Disease
DX: I25.10 Atherosclerotic heart disease of native coronary artery without angina pectoris (principal); I48.91 Unspecified atrial fibrillation; Z95.0 Presence of cardiac pacemaker
CPT/HCPCS: 93010

== ENCOUNTER → 2025-08-19 12:53 | Outpatient (BNVA) | payer MEDICARE, BC, SELFPAY | PROVIDERS: PCP Family Medicine; Referring Provider Family Medicine; Visit Provider Internal Medicine Cardiovascular Disease | DX: I25.10 Atherosclerotic heart disease of native coronary artery without angina pectoris (principal); I48.91 Unspecified atrial fibrillation; Z95.0 Presence of cardiac pacemaker; Z79.01 Long term (current) use of anticoagulants | CPT/HCPCS: 99214; 93005 ==